=== PATIENT | male | born 1945 | race Caucasian/White ===

== ENCOUNTER → 2016-04-24 | Outpatient (CLI) | payer OTHER ==
[~2016-04-24] MED LIST: HYDR12.55 PO; LISI10TA PO; METF1000 PO; OXYC-57 PO; POTA-327 PO
[2016-04-24 12:38] LABS: BLOOD UREA NITROGEN 25 mg/dl (7-18); BUN/CREATININE RATIO 17.9 (10-20); CALCIUM 9.1 mg/dl (8.5-10.1); CARBON DIOXIDE 26 mmol/L (21-32); CHLORIDE 104 mmol/L (98-107); GLUCOSE 190 mg/dl (70-99); POTASSIUM 4.2 mmol/L (3.5-5.1); SODIUM 138 mmol/L (136-145)
[2016-04-24 12:45] LABS: ESTIMATED AVERAGE GLUCOSE 169 mg/dl; HA1C FLAG Normal (Normal)
== END | disposition home or self-care (01) ==
LOC: C.LABPVFM 09:24
PROVIDERS: ATTEND Family Medicine
DX: M10.9 Gout, unspecified (principal); E11.40 Type 2 diabetes mellitus with diabetic neuropathy, unspecified

== ENCOUNTER → 2016-08-22 | Outpatient (CLI) | payer OTHER ==
[2016-08-22 12:39] LABS: ESTIMATED AVERAGE GLUCOSE 166 mg/dl; HA1C FLAG Normal (Normal)
[2016-08-22 12:58] LABS: CALCIUM 9.4 mg/dl (8.5-10.1)
[2016-08-22 12:59] LABS: BLOOD UREA NITROGEN 18 mg/dl (7-18); BUN/CREATININE RATIO 16.7 (10-20); CARBON DIOXIDE 26 mmol/L (21-32); CHLORIDE 107 mmol/L (98-107); GLUCOSE 168 mg/dl (70-99); POTASSIUM 4.4 mmol/L (3.5-5.1); SODIUM 139 mmol/L (136-145)
== END | disposition home or self-care (01) ==
LOC: C.LABPVFM 08:15
PROVIDERS: ATTEND Family Medicine
DX: E11.9 Type 2 diabetes mellitus without complications (principal)

== ENCOUNTER → 2017-03-26 | Outpatient (CLI) | payer OTHER ==
[~2017-03-26] MED LIST changes: -OXYC-57 PO
[2017-03-26 12:11] LABS: ESTIMATED AVERAGE GLUCOSE 177 mg/dl; HA1C FLAG Normal (Normal)
[2017-03-26 12:29] LABS: BLOOD UREA NITROGEN 29 mg/dl (7-18); BUN/CREATININE RATIO 20.9 (10-20); CALCIUM 8.8 mg/dl (8.5-10.1); CARBON DIOXIDE 27 mmol/L (21-32); CHLORIDE 102 mmol/L (98-107); CREATININE 1.39 mg/dl (0.60-1.40); GLUCOSE 158 mg/dl (70-99); POTASSIUM 4.4 mmol/L (3.5-5.1); SODIUM 135 mmol/L (136-145)
[2017-03-26 12:33] LABS: CHOLESTEROL 118 mg/dl (0-200); CHOLESTEROL/HDL RATIO 3.5; HDL CHOLESTEROL 34 mg/dl; LDL CHOLESTEROL CALCULATED 52 mg/dl; TRIGLYCERIDES 162 mg/dl (0-150); VERY LOW DENSITY LIPOPROT CALC 32 mg/dl
== END | disposition home or self-care (01) ==
LOC: C.LABPVFM 08:40
PROVIDERS: ATTEND Family Medicine
DX: E78.5 Hyperlipidemia, unspecified (principal); E11.40 Type 2 diabetes mellitus with diabetic neuropathy, unspecified

== ENCOUNTER → 2017-05-09 | Outpatient (CLI) | payer OTHER ==
[2017-05-09 12:49] LABS: HEMATOCRIT 42.9 % (42-52); HEMOGLOBIN 14.7 g/dL (14.0-18.0); MEAN CELL VOLUME 89.2 fL (80-100); MEAN CORPUSCULAR HEMOGLOBIN 30.6 pg (25-34); MEAN CORPUSCULAR HGB CONC 34.3 g/dl (32-36); MEAN PLATELET VOLUME 12.1 fL (7.4-10.4); PLATELET COUNT 204 K/uL (130-400); RED CELL DISTRIBUTION WIDTH CV 13.1 % (11.5-14.5); RED CELL DISTRIBUTION WIDTH SD 41.8 fL (36.4-46.3); WHITE BLOOD COUNT 7.39 K/uL (4.8-10.8)
[2017-05-09 13:45] LABS: HEMOGLOBIN A1C 8.1 % (4.5-5.6)
[2017-05-09 13:50] LABS: ALBUMIN 3.7 gm/dl (3.4-5.0); ALT/SGPT 26 U/L (12-78); AST/SGOT 16 U/L (15-37); BLOOD UREA NITROGEN 26 mg/dl (7-18); CALCIUM 9.4 mg/dl (8.5-10.1); CARBON DIOXIDE 24 mmol/L (21-32); CHOLESTEROL 129 mg/dl (0-200); CREATININE 1.27 mg/dl (0.60-1.40); GLUCOSE 201 mg/dl (70-99); SODIUM 135 mmol/L (136-145); TRANSFERRIN 268 mg/dl (200-360)
[2017-05-09 13:55] LABS: ALKALINE PHOSPHATASE 87 U/L (45-117); LDL CHOLESTEROL CALCULATED 66 mg/dl; TOTAL PROTEIN 7.3 gm/dl (6.4-8.2)
== END | disposition home or self-care (01) ==
LOC: C.LABPVFM 09:05
PROVIDERS: ATTEND Family Medicine
DX: G25.81 Restless legs syndrome (principal)

== ENCOUNTER → 2017-11-12 | Outpatient (CLI) | payer OTHER ==
[2017-11-12 13:39] LABS: ALBUMIN 3.8 gm/dl (3.4-5.0); ALKALINE PHOSPHATASE 69 U/L (45-117); ALT/SGPT 37 U/L (12-78); AST/SGOT 30 U/L (15-37); BLOOD UREA NITROGEN 23 mg/dl (7-18); CALCIUM 9.2 mg/dl (8.5-10.1); CARBON DIOXIDE 26 mmol/L (21-32); CHOLESTEROL 146 mg/dl (0-200); CREATININE 1.36 mg/dl (0.60-1.40); GLUCOSE 223 mg/dl (70-99); LDL CHOLESTEROL CALCULATED 63 mg/dl; SODIUM 136 mmol/L (136-145); TOTAL PROTEIN 7.2 gm/dl (6.4-8.2)
[2017-11-12 13:51] LABS: HEMOGLOBIN A1C 7.5 % (4.5-5.6)
== END | disposition home or self-care (01) ==
LOC: C.LABPVFM 09:42
PROVIDERS: ATTEND Family Medicine
DX: E11.9 Type 2 diabetes mellitus without complications (principal); E66.9 Obesity, unspecified

== ENCOUNTER 2018-05-18 10:38 | Inpatient (IN) ==
[2018-05-18] MEDS ORDERED: PIPERACILLIN/TAZOBACTAM 4.5 GM/120 ML BAG IV ONE (10:59)
[2018-05-18] MEDS ORDERED: PIPERACILL/TAZOBAC CONSULT ACTIVE PRN ×2 (10:59→14:46)
[2018-05-18] MEDS ORDERED: DAPTOmycin 375 MG in SYRINGE 0 ML IV ONE (10:59)
[2018-05-18] MEDS ORDERED: ACETAMINOPHEN 500 MG TAB PO STA (10:59)
[2018-05-18] MEDS: HYDROmorphone INJ 1 MG/ML SYRINGE IV PRN (11:08)
--- NOTE | 2018-05-18 11:40 | XRay Report ---
XR chest 1V portable CLINICAL HISTORY: 72 years-old Male presenting with Sepsis. TECHNIQUE: Portable upright AP view of the chest was obtained. COMPARISON: 05/16/2018. FINDINGS: Cardiomediastinal silhouette normal. No focal opacity. No large effusion or pneumothorax. Anterior ce rvical fusion hardware. Degenerative changes of the spine. Upper abdomen normal. IMPRESSION: 1. No acute cardiopulmonary disease. Electronically signed by: Mike Bah M.D. 05/18/2018 11:39 AM
[2018-05-18 11:43] LABS: Basophils # (auto) 0.02 K/uL (0-0.2); Basophils % (auto) 0.2 %; Eosinophils # (auto) 0.03 K/uL (0-0.5); Eosinophils % (auto) 0.2 %; Hematocrit (blood only) 42.3 % (42-52); Hemoglobin 14.9 g/dL (14.0-18.0); Immature Granulocytes # (auto) 0.07 K/uL (0.00-0.02); Immature Granulocytes % (auto) 0.5 %; Lymphocytes # (auto) 0.82 K/uL (1.2-3.4); Lymphocytes % (auto) 6.2 %; Mean Corpuscular Hgb Conc 35.2 g/dL (32-36); Mean Corpuscular Volume 91.4 fL (80-100); Mean Platelet Volume 11.2 fL (7.4-10.4); Monocytes # (auto) 1.26 K/uL (0.11-0.59); Monocytes % (auto) 9.5 %; Neutrophils # (auto) 11.06 K/uL (1.4-6.5); Neutrophils % (auto) 83.4 %; Platelet Count 225 K/uL (130-400); RDW Coefficient of Variation 13.4 % (11.5-14.5); RDW Standard Deviation 44.7 fL (36.4-46.3); Red Blood Count 4.63 M/uL (4.7-6.1); White Blood Count 13.26 K/uL (4.8-10.8)
[2018-05-18 11:51] LABS: INR 1.1 (0.9-1.1); Partial Thromboplastin Ratio 1.1; Partial Thromboplastin Time 28.1 Seconds (21.0-31.0); Prothrombin Time 10.8 Seconds (9.0-12.0)
[2018-05-18 12:01] LABS: Alanine Aminotransferase 49 U/L (12-78); Albumin Level 3.1 gm/dl (3.4-5.0); Aspartate Aminotransferase 27 U/L (15-37); Blood Urea Nitrogen 26 mg/dl (7-18); Calcium 9.2 mg/dl (8.5-10.1); Carbon Dioxide 29 mmol/L (21-32); Chloride 95 mmol/L (98-107); Creatinine Clr Calc Pharmacy 57.9 ml/min; Est GFR (African American) 53.1; Est GFR (Non-African American) 45.9; Glucose 137 mg/dl (70-99); Potassium 3.8 mmol/L (3.5-5.1); Sodium 130 mmol/L (136-145)
[2018-05-18] MEDS ORDERED: SODIUM CHLORIDE 0.9% 1000ML 1,000 ML IV ONE (12:10)
--- NOTE | 2018-05-18 12:16 | Ultrasound Report ---
ULTRASOUND BILATERAL LOWER EXTREMITY VENOUS CLINICAL HISTORY: Lower extremity edema. COMPARISON STUDY: Bilateral lower extremity venous ultrasound dated 05/16/2018. TECHNIQUE: Real-time, grayscale, and color Doppler sonography of the deep veins of the right and left lower extremity was performed from the inguinal crease to the calf. Compression and augmentation wer e utilized. FINDINGS: There is no sonographic evidence of deep venous thrombosis identified in the right or left lower extremity. The common femoral, superficial femoral, and popliteal veins are patent and normally compressible bilaterally. The greater saphenous vein and the profunda femoris vein at the junction w ith the common femoral vein are clear in both legs. The visualized calf veins are patent bilaterally. A small left-sided popliteal cyst measures 3.0 x 1.1 x 3.0 cm. IMPRESSION: 1. There is no sonographic evidence of deep venous thrombosis identified in the right or left lower e xtremity. 2. Small left popliteal cyst. Electronically signed by: Branden Berry M.D. 05/18/2018 12:15 PM
[2018-05-18 12:23] LABS: Albumin Globulin Ratio 0.6 (0.9-2); Alkaline Phosphatase 79 U/L (45-117); Bilirubin,Total 1.8 mg/dl (0.2-1); Creatine Kinase 42 U/L (39-308); Creatine Kinase MB < 1.0 ng/ml (0.5-3.6); Globulin 4.9 gm/dl (2.5-4.0); NT Pro B Type Natriuretic Pept 91 pg/ml (0-900); Troponin I < 0.015 ng/ml (0-0.045)
[2018-05-18 13:16] LABS: Appearance Urine Turbid (Clear); Bacteria Urine Automated Negative (Negative); Bilirubin Urine Negative (Negative); Color Urine Dark Yellow; Glucose Urine UA Negative (Negative); Ketones Urine Negative (Negative); Leukocyte Esterase Urine Trace (Negative); Nitrite Urine Negative (Negative); Protein Urine 1+ (Negative); Specific Gravity Urine 1.022 (1.000-1.030); Urobilinogen Urine Negative (Negative)
[2018-05-18 13:32] LABS: Uric Acid Crystals Urine Present (None Prsent)
--- NOTE | 2018-05-18 14:24 | History & Physical Report ---
Date of Service May 18, 2018 Assessment & Plan (1) Cellulitis: L>R Started on zosyn in the ED, will continue LE US neg for DVT Febrile with elevated WBC (2) UTI (urinary tract infection): UA noted s/p orellana for urinary retention post-op zosyn will cover as well Urine and blood cx pending (3) Acute urinary retention: Orellana placed in ED on 05/12 [place] to be related to post-op status (4) Cervical stenosis of spinal canal: Appears stable Ortho c/s pending (5) ARF (acute renal failure): Cr was 1.3 on d/c Monitor on gentle IVF (6) DM type 2 (diabetes mellitus, type 2): Metformin only Monitor (7) Hyperlipidemia: continue home meds (8) HTN (hypertension): continue home meds (9) Gout: Hx of gout in both great toes, separate occurrences Exam is not c/w gout (10) 1st degree AV block: Seen on prior EKG, asx (11) DVT prophylaxis: SCDs given recent OR Rx if permissible by ortho History of Present Illness Primary Care Provider: Jojo Peng MD 72 y/o M c/o LE pain. Pt had a C5-6 fusion on 05/[address] Ortiz. He was doing well from this standpoint and d/c'd to home on 05/12. He states he had no pain in his LE and was able to walk without issue. The night of d/c, pt stopped being able to urinate. He had been able to urinate prior to d/c home. He was seen in the ED and a orellana was placed at that time. He was d/c'd to home. On 05/15, pt again presented to the ED, this time due to pain in his feet and LE, L>R. It was felt that this was related to post-op status. LE US were neg. Pt was d/c'd home. Pt states that over the weekend his LE pain worsened and he developed LE redness, L>R. He states that it was so painful to the bottom of his feet that he could not even walk today, so they returned to the ED. He does have mild LE swelling, L>R. No hx of cellulitis. No recent cuts or scrapes. Pt does have hx of gout in b/l great toes at separate times, but not recently. He has no pain in his toes, mostly the bottoms of the feet. It moves up to the knee on the L only. Pt states that he finds wearing the neck brace uncomfortable, but other than that has had minimal pain related to his recent surgery. He has not needed much for pain control overall. He has no headaches. Pt denies fever, SOB, chest pain , abd pain, n/v/c/d. He notes a decreased appetite since the surgery, but tolerating what he does eat. Allergies Allergy/AdvReac Type Severity Reaction Status Date / Time No Known Allergies Allergy Unknown ` Verified 05/18/18 11:30 Home Medications Home Medications Medication Instructions Recorded Confirmed Type atorvastatin [Lipitor] 10 mg PO HS 04/17/18 05/18/18 History hydrochlorothiazide 12.5 mg PO QAM 04/17/18 05/18/18 History lisinopril 10 mg PO QAM 04/17/18 05/18/18 History metformin 1,000 mg PO BID 04/17/18 05/18/18 History potassium chloride 10 meq PO QAM 04/17/18 05/18/18 History oxycodone 5 mg PO Q4H PRN #20 tab 05/11/18 05/18/18 Rx acetaminophen [Tylenol] 650 mg PO DIRECTED PRN 05/16/18 05/18/18 History gabapentin 100 mg PO Q8H PRN #20 cap 05/16/18 05/18/18 Rx Past Med/Surg History Medical History Bilateral lower extremity edema (Acute) CKD (chronic kidney disease) (Acute) Acute urinary retention (Acute) Obesity DVT prophylaxis Cervical stenosis of spinal canal Calculus, ureteral Gout of left ankle (Acute) Encounter for pre-operative examination Degenerative disc disease 5TH DIGIT OF RIGHT HAND NUMB S/T NECK ISSUES. Diabetes mellitus, type 2 History of nephrolithiasis Hyperlipidemia Hypertension Kidney stones Osteoarthritis Surgical History Hx of neck surgery History of nasal surgery (Acute) History of cataract extraction with lens replacement B/L History of repair of rotator cuff LEFT Family History Other Family history non-contributory Social History marital status: Current Living Situation: Family and Significant Other current occupational status: retired current occupation: Worked for [employer] Other Information That Helps Us Care for You: No Feels Safe at Home: Yes Safety Concerns: Feels Safe At This Time Smoking Status: Never smoker Second Hand Exposure: No Hx Alcohol Use: Yes Alcohol type: beer Alcohol Intake Frequency: a few times a month Hx Substance Use: No Beliefs That Will Affect Care: None Preferred Language: Mongolian Communication Ability: Effective Review of Systems Pertinent positives and negatives reviewed in HPI--all others negative Physical Exam 2 Vital Signs (Past 24 Hours): Last Vital Signs Temp 37.7 C H 05/18/18 12:36 Pulse 75 05/18/18 14:00 Resp 25 H 05/18/18 14:00 BP 160/104 H 05/18/18 14:00 Pulse Ox 94 05/18/18 14:00 Constitutional: WD/WN, vitals as above Eyes: normal visual chan by confrontation and + anicteric sclerae Neck: normal visual inspection and trachea midline Respiratory: normal respiratory effort, lungs clear to auscultation Cardiovascular: Rate/Rhythm: regular rate and regular rhythm Gastrointestinal (Abdomen): Inspection/Auscultation: abdomen not distended Percussion/Palpation: abdomen soft; abdomen nontender Musculoskeletal: Head/Neck/Chest: normocephalic and head atraumatic mild L> R trace edema LE, peripheral pulses intact, warm and TTP on the L Skin: L LE with light colored redness along lateral aspect of LE from distal to ankle up the lateral LE. R LE with light redness along the lateral region around and distal to the ankle Neurologic: awake; not confused Speech / Cognition: normal speech Psychiatric: A+Ox3, euthymic affect Results & Data Diagnostic Findings LE US neg for DVT b/l ECG Findings: + 1st degree AV block (seen prior) Code Status & VTE Plan Code Status Full code VTE Prophylaxis Plan VTE Prophylaxis will be ordered: Yes _ (1) Cellulitis Laterality: Site of cellulitis: unspecified site Site of cellulitis of extremity: Site of cellulitis of trunk: Qualified Code(s): L03.90 - Cellulitis, unspecified (2) UTI (urinary tract infection) Encounter type: Hematuria presence: with hematuria Indwelling urinary catheter type: Urinary tract infection type: site unspecified Qualified Code( s): N39.0 - Urinary tract infection, site not specified; R31.9 - Hematuria, unspecified
[2018-05-18] MEDS ORDERED: MAGNESIUM HYDROXIDE SUSP 30 ML UDC PO PRN (14:46)
[2018-05-18] MEDS ORDERED: ONDANSETRON INJ 2 MG/ML 2 ML VIAL IV PRN (14:46)
[2018-05-18] MEDS ORDERED: GABAPENTIN 100 MG CAP PO PRN (14:46)
[2018-05-18] MEDS ORDERED: NON-FORMULARY MEDICATION (Acetaminophen [Tylenol] 650 MG) PO PRN (14:46)
--- NOTE | 2018-05-18 15:26 | Emergency Department Note ---
Entered by Margarita Glass acting as a scribe for Francisco Belcher MD History of Present Illness General Chief complaint: Leg Injury/Pain Time Seen by Provider: 05/18/18 10:52 Source: patient History of Present Illness Onset (ago): day(s) (last night) Location: lower extremity (bilateral) Pain Consistency: + other (worsening) Maximum Pain Intensity: 9 Quality: + sharp and + other (swollen, red) Exacerbated By: + movement (walking) Associated symptoms: + denies other symptoms (abdominal pain) The patient is a 72 year old male who presents to the Emergency Room with complaints of worsening bilateral leg pain starting last night. The patient states that he had surgery done on his neck by Dr. Ortiz last week. He states that he was sent home 6 days ago, but came back to the ED that night to have a catheter placed. He reports that 3 days ago he started having bilateral foot pain. He states that he came to the ED and did an ultrasound that was negative. Her reports that he was sent home, but since then, it has become worse. He states that his feet are now both red and swollen. He reports that it is a sharp pain and he cannot even walk because of it. The patient denies abdominal pain. Home Medications Home Medications Medication Instructions Recorded Confirmed Type atorvastatin [Lipitor] 10 mg PO HS 04/17/18 05/18/18 History hydrochlorothiazide 12.5 mg PO QAM 04/17/18 05/18/18 History lisinopril 10 mg PO QAM 04/17/18 05/18/18 History metformin 1,000 mg PO BID 04/17/18 05/18/18 History potassium chloride 10 meq PO QAM 04/17/18 05/18/18 History oxycodone 5 mg PO Q4H PRN #20 tab 05/11/18 05/18/18 Rx acetaminophen [Tylenol] 650 mg PO DIRECTED PRN 05/16/18 05/18/18 History gabapentin 100 mg PO Q8H PRN #20 cap 05/16/18 05/18/18 Rx Allergies Allergy/AdvReac Type Severity Reaction Status Date / Time No Known Allergies Allergy Unknown ` Verified 05/18/18 11:30 Past Med/Surg History Medical History Bilateral lower extremity edema (Acute) CKD (chronic kidney disease) (Acute) Acute urinary retention (Acute) Obesity DVT prophylaxis Cervical stenosis of spinal canal Calculus, ureteral Gout of left ankle (Acute) Encounter for pre-operative examination Degenerative disc disease 5TH DIGIT OF RIGHT HAND NUMB S/T NECK ISSUES. Diabetes mellitus, type 2 History of nephrolithiasis Hyperlipidemia Hypertension Kidney stones Osteoarthritis Surgical History Hx of neck surgery History of nasal surgery (Acute) History of cataract extraction with lens replacement B/L History of repair of rotator cuff LEFT Social History marital status: Current Living Situation: Family and Significant Other current occupational status: retired current occupation: Worked for [employer] Other Information That Helps Us Care for You: No Feels Safe at Home: Yes Safety Concerns: Feels Safe At This Time Smoking Status: Never smoker Second Hand Exposure: No Hx Alcohol Use: Yes Alcohol type: beer Alcohol Intake Frequency: a few times a month Hx Substance Use: No Beliefs That Will Affect Care: None Preferred Language: Upper Sorbian Communication Ability: Effective Review of Systems See HPI for pertinent positives & negatives. and A total of 10 systems reviewed and were otherwise negative Physical Exam Vital Signs Vital Signs - 24 hr 05/18/18 10:43 05/18/18 10:44 05/18/18 11:14 Temperature 38.6 C H Temperature Source Oral Sepsis Recent Fever Within 48 Hours Yes Sepsis New/Unexplained Change in Mental Status No Sepsis Action Taken by Nursing No Action Required Pulse Rate 91 H 90 89 Pulse Rate [Finger] Pulse Rhythm Regular Regular Pulse Rhythm [Finger] Pulse Strength Normal Pulse Strength [Finger] Respiratory Rate 16 16 18 Respiratory Effort / Characteristics Non-Labored Respiratory Depth Normal Respiratory Pattern Regular Blood Pressure 137/77 137/77 Blood Pressure [Right Arm] Blood Pressure Mean 97 97 Blood Pressure Mean [Right Arm] Blood Pressure Position Sitting Blood Pressure Position [Right Arm] Pulse Oximetry 91 93 93 Oxygen Delivery Method Room Air Room Air Oxygen Flow Rate 05/18/18 11:29 05/18/18 11:30 05/18/18 11:31 Temperature Temperature Source Sepsis Recent Fever Within 48 Hours Sepsis New/Unexplained Change in Mental Status Sepsis Action Taken by Nursing Pulse Rate 87 87 Pulse Rate [Finger] Pulse Rhythm Pulse Rhythm [Finger] Pulse Strength Pulse Strength [Finger] Respiratory Rate 26 H 24 Respiratory Effort / Characteristics Respiratory Depth Respiratory Pattern Blood Pressure 140/77 140/77 Blood Pressure [Right Arm] Blood Pressure Mean 98 98 Blood Pressure Mean [Right Arm] Blood Pressure Position Blood Pressure Position [Right Arm] Pulse Oximetry 88 L 93 94 Oxygen Delivery Method Nasal Cannula Oxygen Flow Rate 2 05/18/18 11:41 05/18/18 11:46 05/18/18 12:35 Temperature Temperature Source Sepsis Recent Fever Within 48 Hours Sepsis New/Unexplained Change in Mental Status Sepsis Action Taken by Nursing Pulse Rate 86 89 Pulse Rate [Finger] 86 Pulse Rhythm Pulse Rhythm [Finger] Pulse Strength Pulse Strength [Finger] Respiratory Rate 22 23 15 Respiratory Effort / Characteristics Respiratory Depth Respiratory Pattern Blood Pressure 133/76 112/83 Blood Pressure [Right Arm] 140/77 Blood Pressure Mean 95 92 Blood Pressure Mean [Right Arm] 98 Blood Pressure Position Blood Pressure Position [Right Arm] Pulse Oximetry 94 94 95 Oxygen Delivery Method Nasal Cannula Oxygen Flow Rate 2 05/18/18 12:36 05/18/18 12:46 05/18/18 13:01 Temperature 37.7 C H Temperature Source Oral Sepsis Recent Fever Within 48 Hours Sepsis New/Unexplained Change in Mental Status Sepsis Action Taken by Nursing Pulse Rate 79 77 Pulse Rate [Finger] 81 Pulse Rhythm Pulse Rhythm [Finger] Regular Pulse Strength Pulse Strength [Finger] Normal Respiratory Rate 16 24 20 Respiratory Effort / Characteristics Non-Labored Respiratory Depth Normal Respiratory Pattern Regular Blood Pressure 117/86 151/89 H Blood Pressure [Right Arm] 112/83 Blood Pressure Mean 96 109 Blood Pressure Mean [Right Arm] 92 Blood Pressure Position Blood Pressure Position [Right Arm] Lying Pulse Oximetry 95 93 95 Oxygen Delivery Method Nasal Cannula Oxygen Flow Rate 2 05/18/18 13:05 05/18/18 13:16 05/18/18 13:30 Temperature Temperature Source Sepsis Recent Fever Within 48 Hours Sepsis New/Unexplained Change in Mental Status Sepsis Action Taken by Nursing Pulse Rate 78 77 74 Pulse Rate [Finger] Pulse Rhythm Pulse Rhythm [Finger] Pulse Strength Pulse Strength [Finger] Respiratory Rate 18 22 18 Respiratory Effort / Characteristics Respiratory Depth Respiratory Pattern Blood Pressure 160/100 H 160/100 H Blood Pressure [Right Arm] Blood Pressure Mean 120 120 Blood Pressure Mean [Right Arm] Blood Pressure Position Blood Pressure Position [Right Arm] Pulse Oximetry 96 96 95 Oxygen Delivery Method Oxygen Flow Rate 05/18/18 13:35 05/18/18 13:45 05/18/18 14:00 Temperature Temperature Source Sepsis Recent Fever Within 48 Hours Sepsis New/Unexplained Change in Mental Status Sepsis Action Taken by Nursing Pulse Rate 74 75 75 Pulse Rate [Finger] Pulse Rhythm Pulse Rhythm [Finger] Pulse Strength Pulse Strength [Finger] Respiratory Rate 24 30 H 25 H Respiratory Effort / Characteristics Respiratory Depth Respiratory Pattern Blood Pressure 158/99 H 160/104 H Blood Pressure [Right Arm] Blood Pressure Mean 118 122 Blood Pressure Mean [Right Arm] Blood Pressure Position Blood Pressure Position [Right Arm] Pulse Oximetry 95 94 94 Oxygen Delivery Method Oxygen Flow Rate 05/18/18 14:01 05/18/18 14:19 05/18/18 14:43 Temperature 37.0 C Temperature Source Oral Sepsis Recent Fever Within 48 Hours Sepsis New/Unexplained Change in Mental Status Sepsis Action Taken by Nursing Pulse Rate 77 Pulse Rate [Finger] 75 Pulse Rhythm Pulse Rhythm [Finger] Pulse Strength Pulse Strength [Finger] Respiratory Rate 16 18 Respiratory Effort / Characteristics Respiratory Depth Normal Respiratory Pattern Regular Blood Pressure 156/100 H Blood Pressure [Right Arm] 126/70 Blood Pressure Mean Blood Pressure Mean [Right Arm] 88 Blood Pressure Position Blood Pressure Position [Right Arm] Lying Pulse Oximetry 95 94 Oxygen Delivery Method Nasal Cannula Nasal Cannula Oxygen Flow Rate 2 2 2 GENERAL: Awake, alert, well-appearing, in no distress HENT: Normocephalic, atraumatic. Oropharynx unremarkable. EYES: Normal conjunctiva. Sclera non-icteric. NECK: Supple. No nuchal rigidity. FROM. No masses. Cervical collar in place. RESPIRATORY: Clear to auscultation. No wheezes. No rales. Normal respiratory effort. CARDIAC: Normal rate. Normal rhythm. No murmurs. No rubs. Extremities warm and well perfused. Pulses equal. No JVD. GI: Soft, non-distended. No tenderness to palpation. No rebound or guarding. No masses. : Portillo catheter in place. RECTAL: Deferred. MUSCULOSKELETAL: Atraumatic. Chest examination reveals no tenderness. The back is symmetrical on inspection without obvious abnormality. There is no CVA tenderness to palpation. No joint edema. LOWER EXTREMITIES: Calves are equal size bilaterally and non-tender. Developing cellulitis to the dorsum of the left foot and left leg. 5/5 strength to the bilateral lower extremities. NEURO: Normal sensorium. No sensory or motor deficits noted. Course 1057: Past medical records reviewed. The patient was evaluated in room B12B, and a complete history and physical examination were performed. 1112: I discussed the patient's case with Dr. Maykel Turner. He agrees with the plan and would like medicine to bring him in. 1254: I reviewed the patient's case with Dr. Naya ZAMUDIO Hospitalist. She will evaluate the patient for further management. 1256: I reevaluated the patient and updated him and his on his test results. I discussed the treatment plan with them. They verbally agree and understand. Consultations Consultation #1: I discussed the patient's case with Dr. Maykel Turner. He agrees with the plan and would like medicine to bring him in. Time: 11:12 Consultation #2: I reviewed the patient's case with Dr. Naya ZAMUDIO Hospitalist. She will evaluate the patient for further management. Time: 12:54 Administered Medications Hydromorphone HCl (Dilaudid) 1 mg IV Q15M PRN PRN Reason: Pain Stop: 06/01/18 10:58 Last Admin: 05/18/18 11:08 Dose: 1 mg Discontinued Medications Acetaminophen (Tylenol) 1,000 mg PO NOW STA Stop: 05/18/18 11:00 Last Admin: 05/18/18 11:08 Dose: 1,000 mg Daptomycin 375 mg/ Syringe 7.5 mls @ 3.75 mls/min IV NOW ONE Stop: 05/18/18 11:00 Last Admin: 05/18/18 12:35 Dose: 3.75 mls/min Piperacillin Sod/Tazobactam Sod (Zosyn) 4.5 gm in 120 mls @ 240 mls/hr IV NOW ONE Stop: 05/18/18 11:28 Last Infusion: 05/18/18 12:10 Dose: 0 mls/hr Admin: 05/18/18 11:40 Dose: 240 mls/hr Sodium Chloride (Nss 1000ml) 1,000 mls @ 999 mls/hr IV .Q1H1M ONE Stop: 05/18/18 13:10 Last Infusion: 05/18/18 13:37 Dose: 0 mls/hr Admin: 05/18/18 12:36 Dose: 999 mls/hr Medical Decision Making Differential Diagnosis Differential diagnosis: Etiologies such as viral syndrome, otitis, pharyngitis, pneumonia, influenza, meningitis, urinary tract infection, septic arthritis, soft tissue infectious process, intra-abdominal process, sepsis, bacteremia, as well as others were entertained. Medical Records Attestation: I reviewed the patient's medical records. Home Medications Current Medication List: was personally reviewed by me Laboratory Data Attestation: I reviewed the patient's lab results. Result diagrams: 05/18/18 11:29 05/18/18 11:29 Lab Results 05/18/18 05/18/18 05/18/18 Range/Units 11:29 11:29 11:29 WBC 13.26 H (4.8-10.8) K/uL RBC 4.63 L (4.7-6.1) M/uL Hgb 14.9 (14.0-18.0) g/dL Hct 42.3 (42-52) % MCV 91.4 (80-100) fL MCH 32.2 (25-34) pg MCHC 35.2 (32-36) g/dL RDW Std Deviation 44.7 (36.4-46.3) fL RDW Coeff of Karlie 13.4 (11.5-14.5) % Plt Count 225 (130-400) K/uL MPV 11.2 H (7.4-10.4) fL Immature Gran % (Auto) 0.5 % Neut % (Auto) 83.4 % Lymph % (Auto) 6.2 % [place] % (Auto) 9.5 % Eos % (Auto) 0.2 % Baso % (Auto) 0.2 % Immature Gran # (Auto) 0.07 H (0.00-0.02) K/uL Neut # (Auto) 11.06 H (1.4-6.5) K/uL Lymph # (Auto) 0.82 L (1.2-3.4) K/uL [place] # (Auto) 1.26 H (0.11-0.59) K/uL Eos # (Auto) 0.03 (0-0.5) K/uL Baso # (Auto) 0.02 (0-0.2) K/uL ESR 46 H (0-14) mm/hr PT (9.0-12.0) Seconds INR (0.9-1.1) APTT (21.0-31.0) Seconds PTT Ratio Sodium (136-145) mmol/L Potassium (3.5-5.1) mmol/L Chloride (98-107) mmol/L Carbon Dioxide (21-32) mmol/L Anion Gap (3-11) BUN (7-18) mg/dl Creatinine (0.6-1.4) mg/dl Est Cr Clr Drug Dosing ml/min Est GFR ( Amer) Est GFR (Non-Af Amer) BUN/Creatinine Ratio (10-20) Glucose (70-99) mg/dl Lactate (0.4-2.0) mmol/L Calcium (8.5-10.1) mg/dl Total Bilirubin (0.2-1) mg/dl AST (15-37) U/L ALT (12-78) U/L Alkaline Phosphatase (45-117) U/L Total Creatine Kinase (39-308) U/L CK-MB (CK-2) (0.5-3.6) ng/ml CK/CKMB % Calc Troponin I (0-0.045) ng/ml C-Reactive Protein (0-0.29) mg/dl NT-Pro-B Natriuret Pep (0-900) pg/ml Total Protein (6.4-8.2) gm/dl Albumin (3.4-5.0) gm/dl Globulin (2.5-4.0) gm/dl Albumin/Globulin Ratio (0.9-2) Procalcitonin 0.27 (0-0.5) ng/ml Urine Color Urine Appearance (Clear) Urine pH (4.5-7.5) Ur Specific [place] (1.000-1.030) Urine Protein (Negative) Urine Glucose (UA) (Negative) Urine Ketones (Negative) Urine Blood (Negative) Urine Nitrite (Negative) Urine Bilirubin (Negative) Urine Urobilinogen (Negative) Ur Leukocyte Esterase (Negative) Urine WBC (Auto) (0-5) /hpf Urine RBC (Auto) (0-4) /hpf U Hyaline Cast (Auto) (0-5) /lpf U Epithel Cells (Auto) (0-5) /lpf Urine Bacteria (Auto) (Negative) Urine Crystals Uric Acid Crystals (None Prsent) 02/04/19 02/04/19 02/04/19 Range/Units 11:29 11:29 11:29 WBC (4.8-10.8) K/uL RBC (4.7-6.1) M/uL Hgb (14.0-18.0) g/dL Hct (42-52) % MCV (80-100) fL MCH (25-34) pg MCHC (32-36) g/dL RDW Std Deviation (36.4-46.3) fL RDW Coeff of Karlie (11.5-14.5) % Plt Count (130-400) K/uL MPV (7.4-10.4) fL Immature Gran % (Auto) % Neut % (Auto) % Lymph % (Auto) % [place] % (Auto) % Eos % (Auto) % Baso % (Auto) % Immature Gran # (Auto) (0.00-0.02) K/uL Neut # (Auto) (1.4-6.5) K/uL Lymph # (Auto) (1.2-3.4) K/uL [place] # (Auto) (0.11-0.59) K/uL Eos # (Auto) (0-0.5) K/uL Baso # (Auto) (0-0.2) K/uL ESR (0-14) mm/hr PT 10.8 (9.0-12.0) Seconds INR 1.1 (0.9-1.1) APTT 28.1 (21.0-31.0) Seconds PTT Ratio 1.1 Sodium 130 L (136-145) mmol/L Potassium 3.8 (3.5-5.1) mmol/L Chloride 95 L (98-107) mmol/L Carbon Dioxide 29 (21-32) mmol/L Anion Gap 6.0 (3-11) BUN 26 H (7-18) mg/dl Creatinine 1.50 H (0.6-1.4) mg/dl Est Cr Clr Drug Dosing 57.9 ml/min Est GFR ( Amer) 53.1 Est GFR (Non-Af Amer) 45.9 BUN/Creatinine Ratio 17.0 (10-20) Glucose 137 H (70-99) mg/dl Lactate 1.3 (0.4-2.0) mmol/L Calcium 9.2 (8.5-10.1) mg/dl Total Bilirubin 1.8 H D (0.2-1) mg/dl AST 27 (15-37) U/L ALT 49 (12-78) U/L Alkaline Phosphatase 79 (45-117) U/L Total Creatine Kinase 42 (39-308) U/L CK-MB (CK-2) < 1.0 (0.5-3.6) ng/ml CK/CKMB % Calc TNP Troponin I < 0.015 (0-0.045) ng/ml C-Reactive Protein 16.50 H (0-0.29) mg/dl NT-Pro-B Natriuret Pep 91 (0-900) pg/ml Total Protein 8.0 (6.4-8.2) gm/dl Albumin 3.1 L (3.4-5.0) gm/dl Globulin 4.9 H (2.5-4.0) gm/dl Albumin/Globulin Ratio 0.6 L (0.9-2) Procalcitonin (0-0.5) ng/ml Urine Color Urine Appearance (Clear) Urine pH (4.5-7.5) Ur Specific [place] (1.000-1.030) Urine Protein (Negative) Urine Glucose (UA) (Negative) Urine Ketones (Negative) Urine Blood (Negative) Urine Nitrite (Negative) Urine Bilirubin (Negative) Urine Urobilinogen (Negative) Ur Leukocyte Esterase (Negative) Urine WBC (Auto) (0-5) /hpf Urine RBC (Auto) (0-4) /hpf U Hyaline Cast (Auto) (0-5) /lpf U Epithel Cells (Auto) (0-5) /lpf Urine Bacteria (Auto) (Negative) Urine Crystals Uric Acid Crystals (None Prsent) 05/18/18 Range/Units 13:00 WBC (4.8-10.8) K/uL RBC (4.7-6.1) M/uL Hgb (14.0-18.0) g/dL Hct (42-52) % MCV (80-100) fL MCH (25-34) pg MCHC (32-36) g/dL RDW Std Deviation (36.4-46.3) fL RDW Coeff of Karlie (11.5-14.5) % Plt Count (130-400) K/uL MPV (7.4-10.4) fL Immature Gran % (Auto) % Neut % (Auto) % Lymph % (Auto) % [place] % (Auto) % Eos % (Auto) % Baso % (Auto) % Immature Gran # (Auto) (0.00-0.02) K/uL Neut # (Auto) (1.4-6.5) K/uL Lymph # (Auto) (1.2-3.4) K/uL [place] # (Auto) (0.11-0.59) K/uL Eos # (Auto) (0-0.5) K/uL Baso # (Auto) (0-0.2) K/uL ESR (0-14) mm/hr PT (9.0-12.0) Seconds INR (0.9-1.1) APTT (21.0-31.0) Seconds PTT Ratio Sodium (136-145) mmol/L Potassium (3.5-5.1) mmol/L Chloride (98-107) mmol/L Carbon Dioxide (21-32) mmol/L Anion Gap (3-11) BUN (7-18) mg/dl Creatinine (0.6-1.4) mg/dl Est Cr Clr Drug Dosing ml/min Est GFR ( Amer) Est GFR (Non-Af Amer) BUN/Creatinine Ratio (10-20) Glucose (70-99) mg/dl Lactate (0.4-2.0) mmol/L Calcium (8.5-10.1) mg/dl Total Bilirubin (0.2-1) mg/dl AST (15-37) U/L ALT (12-78) U/L Alkaline Phosphatase (45-117) U/L Total Creatine Kinase (39-308) U/L CK-MB (CK-2) (0.5-3.6) ng/ml CK/CKMB % Calc Troponin I (0-0.045) ng/ml C-Reactive Protein (0-0.29) mg/dl NT-Pro-B Natriuret Pep (0-900) pg/ml Total Protein (6.4-8.2) gm/dl Albumin (3.4-5.0) gm/dl Globulin (2.5-4.0) gm/dl Albumin/Globulin Ratio (0.9-2) Procalcitonin (0-0.5) ng/ml Urine Color Dark Yellow Urine Appearance Turbid H (Clear) Urine pH 5.0 (4.5-7.5) Ur Specific [place] 1.022 (1.000-1.030) Urine Protein 1+ H (Negative) Urine Glucose (UA) Negative (Negative) Urine Ketones Negative (Negative) Urine Blood 2+ H (Negative) Urine Nitrite Negative (Negative) Urine Bilirubin Negative (Negative) Urine Urobilinogen Negative (Negative) Ur Leukocyte Esterase Trace H (Negative) Urine WBC (Auto) 1-5 (0-5) /hpf Urine RBC (Auto) 10-30 H (0-4) /hpf U Hyaline Cast (Auto) 1-5 (0-5) /lpf U Epithel Cells (Auto) 5-10 H (0-5) /lpf Urine Bacteria (Auto) Negative (Negative) Urine Crystals Not Reportable Uric Acid Crystals Present H (None Prsent) Imaging Data Radiologist's Impression: Radiology results as stated below per my review and the radiologist's interpretation: XR chest 1V portable CLINICAL HISTORY: 72 years-old Male presenting with Sepsis. TECHNIQUE: Portable upright AP view of the chest was obtained. COMPARISON: 05/16/2018. FINDINGS: Cardiomediastinal silhouette normal. No focal opacity. No large effusion or pneumothorax. Anterior cervical fusion hardware. Degenerative changes of the spine. Upper abdomen normal. IMPRESSION: 1. No acute cardiopulmonary disease. Electronically signed by: Mike Bah M.D. 05/18/2018 11:39 AM ULTRASOUND BILATERAL LOWER EXTREMITY VENOUS CLINICAL HISTORY: Lower extremity edema. COMPARISON STUDY: Bilateral lower extremity venous ultrasound dated 05/16/2018. TECHNIQUE: Real-time, grayscale, and color Doppler sonography of the deep veins of the right and left lower extremity was performed from the inguinal crease to the calf. Compression and augmentation were utilized. FINDINGS: There is no sonographic evidence of deep venous thrombosis identified in the right or left lower extremity. The common femoral, superficial femoral, and popliteal veins are patent and normally compressible bilaterally. The greater saphenous vein and the profunda femoris vein at the junction with the common femoral vein are clear in both legs. The visualized calf veins are patent bilaterally. A small left-sided popliteal cyst measures 3.0 x 1.1 x 3.0 cm. IMPRESSION: 1. There is no sonographic evidence of deep venous thrombosis identified in the right or left lower extremity. 2. Small left popliteal cyst. Electronically signed by: Branden Berry M.D. 05/18/2018 12:15 PM ECG Data Attestation: I personally reviewed and interpreted this ECG as follows: Indication: weakness Rate (beats per minute): 89 Rhythm: sinus rhythm Findings: + 1st degree AV block; no ST depression and no ST elevation Blood Pressure Blood Pressure Findings: Elevated blood pressure Blood Pressure Disposition: further management by hospitalist [facility] Narrative This is a 72-year-old male who presents emergency department complaining of fever. The patient recently had neck surgery performed. He does have an elevation in his white blood cell count and does appear to have cellulitis developing on his left lower extremity as well as a UTI. Patient was given Tylenol here for the fever and started on fluids. Blood cultures were obtained the patient was started on Zosyn as well as daptomycin. I did discuss the case with the hospitalist service who agreed to admit the patient. Patient and family were in agreement with the treatment plan. Impression & Plan Fever, Cellulitis, UTI (urinary tract infection) Discharge Plan Visit Data *Final* Discharge Date/Time: 05/18/18 14:19 Chief Complaint: Leg Injury/Pain ED Provider: Francisco Belcher Discharge Problem: Fever, Cellulitis, UTI (urinary tract infection) Patient Disposition: Admitted As Inpatient Discharge Instructions Interventions: ED Discharge Assessment Last Done: 05/18/18 14:19 The scribe's documentation has been prepared under my direction and personally reviewed by me in its entirety. I confirm that the note above accurately reflects all work, treatment, procedures, and medical decision making performed by me.
[2018-05-18] MEDS: NSS + 20MEQ KCL 20 MEQ/1,000 ML BAG IV SCH (16:07)
[2018-05-18] MEDS: PIPERACILLIN/TAZOBACTAM 4.5 GM in DEXTROSE 5% 100 ML IV SCH (16:07)
[2018-05-18] MEDS: OXYCODONE HCL IR 5 MG TAB (IMMEDIATE RELEASE) PO PRN (16:16)
[2018-05-18] MEDS: METFORMIN HCL 500 MG TAB PO SCH (17:49)
[2018-05-18] MEDS ORDERED: DEXTROSE 50% 50 ML SYRINGE IV PRN (20:55)
[2018-05-18] MEDS ORDERED: GLUCOSE 40% GEL 15 GM TUBE PO PRN (20:55)
[2018-05-18] MEDS ORDERED: GLUCOSE 10 TABS/TUBE PO PRN (20:55)
[2018-05-18] MEDS ORDERED: GLUCAGON FOR INJ 1 MG VIAL SQ PRN (20:55)
[2018-05-18] MEDS ORDERED: CARBOHYDRATES FOR HYPOGLYCEMIA PO PRN (20:55)
[2018-05-18] MEDS: ATORVASTATIN 10 MG TAB PO SCH (21:05)
[2018-05-19] MEDS: PIPERACILLIN/TAZOBACTAM 4.5 GM in DEXTROSE 5% 100 ML IV SCH ×4 (00:06→23:34)
[2018-05-19] MEDS: HYDROmorphone INJ 1 MG/ML SYRINGE IV PRN (02:43)
[2018-05-19] MEDS: OXYCODONE HCL IR 5 MG TAB (IMMEDIATE RELEASE) PO PRN ×3 (05:41→14:43)
[2018-05-19] MEDS ORDERED: HYDROmorphone INJ 1 MG/ML SYRINGE IV PRN (06:21)
[2018-05-19 06:31] LABS: Basophils # (auto) 0.01 K/uL (0-0.2); Basophils % (auto) 0.1 %; Eosinophils # (auto) 0.03 K/uL (0-0.5); Eosinophils % (auto) 0.3 %; Hematocrit (blood only) 39.6 % (42-52); Hemoglobin 13.3 g/dL (14.0-18.0); Immature Granulocytes # (auto) 0.04 K/uL (0.00-0.02); Immature Granulocytes % (auto) 0.4 %; Lymphocytes # (auto) 0.82 K/uL (1.2-3.4); Lymphocytes % (auto) 7.5 %; Mean Corpuscular Hgb Conc 33.6 g/dL (32-36); Mean Corpuscular Volume 92.7 fL (80-100); Mean Platelet Volume 11.1 fL (7.4-10.4); Monocytes # (auto) 1.25 K/uL (0.11-0.59); Monocytes % (auto) 11.4 %; Neutrophils # (auto) 8.79 K/uL (1.4-6.5); Neutrophils % (auto) 80.3 %; Platelet Count 221 K/uL (130-400); RDW Coefficient of Variation 13.4 % (11.5-14.5); RDW Standard Deviation 45.6 fL (36.4-46.3); Red Blood Count 4.27 M/uL (4.7-6.1); White Blood Count 10.94 K/uL (4.8-10.8)
[2018-05-19 07:11] LABS: BUN Creatinine Ratio 17.5 (10-20); Calcium 8.8 mg/dl (8.5-10.1); Creatinine Clr Calc Pharmacy 47.4 ml/min; Est GFR (African American) 41.8; Est GFR (Non-African American) 36.1; Magnesium 1.8 mg/dl (1.8-2.4); Phosphorus 3.6 mg/dl (2.5-4.9); Potassium 3.7 mmol/L (3.5-5.1)
[2018-05-19] MEDS ORDERED: hydroCHLOROthiazide 25 MG TAB PO SCH (09:00)
[2018-05-19] MEDS ORDERED: LISINOPRIL 10 MG TAB PO SCH (09:00)
[2018-05-19] MEDS: NSS + 20MEQ KCL 20 MEQ/1,000 ML BAG IV SCH ×2 (09:19→21:42)
[2018-05-19] MEDS: POTASSIUM CHLORIDE 10 MEQ TABCR PO SCH (09:20)
[2018-05-19] MEDS: METFORMIN HCL 500 MG TAB PO SCH (09:28)
--- NOTE | 2018-05-19 10:00 | Hospitalist Progress Note ---
Date of Service May 19, 2018 Assessment & Plan (1) Bilateral foot pain: Cellulitis is less likely as the area of redness on either foot are symmetrical, it would be strange to have bilateral mirroring infections. I'm also not sure that it's a vascular insufficiency as patient has good pulses with warm feet/extremities. LE US did not reveal dvt - patient does have small popliteal cyst - contributing to left knee pain? Febrile with elevated WBC on admission - resolved - will continue zosyn until cultures resulted Gout flare? - see below ortho spine consulted (2) Acute kidney injury: Baseline creatinine is 1.3 - now 1.83 Will hold metformin, lisinopril and hctz Continue gentle fluids Prp am (3) UTI (urinary tract infection): UA noted s/p orellana for urinary retention post-op Continue zosyn Urine and blood cx pending (4) Acute urinary retention: Orellana placed in ED on 05/12 [place] to be related to post-op status (5) Cervical stenosis of spinal canal: Appears stable Ortho c/s pending (6) DM type 2 (diabetes mellitus, type 2): Metformin at home - hold for now for hypoglycemia, renal function BSGs ac & hs (7) Hyperlipidemia: continue atorvastatin (8) HTN (hypertension): continue home meds (9) Gout: Hx of gout in both great toes, separate occurrences Patient does have uric acid crystals in urine - will order serum uric acid though could take up to two weeks to be evident in the blood after an attack and does not rule out pseudogout Will hold off on NSAIDs or colchicine due to kidney function Will give dose of IV solumedrol now and then transition to prednisone po (10) 1st degree AV block: Seen on prior EKG, asx (11) Hypoglycemia: unclear etiology at present - eating less or related to infection? Hold metformin Cotinue bsgs ac & hs (12) DVT prophylaxis: SCDs given recent OR Rx if permissible by ortho Supervising Physician Co-Signing Physician Notes SAMPLE SUPERVISOR Physician Supervision Note: I discussed with Lorrie Lino NP and agree with findings and plan as documented in the note. Any exceptions or clarifications are listed here: None Documented By: Ravi Da Silva Subjective Mr. Kiran is feeling better than yesterday but still has bilateral pain on his lateral feet and on the left leg the pain travels up his lateral and posterior leg to the knee. He otherwise has no complaints. No loss of bowel function. Orellana in place Review of Systems All systems reviewed & are unremarkable except as noted in HPI & below Physical Exam 2 Vital Signs (Past 24 Hours): Last Vital Signs Temp 36.4 C L 05/19/18 07:26 Pulse 77 05/19/18 07:26 Resp 22 05/19/18 07:26 BP 144/71 H 05/19/18 07:26 Pulse Ox 94 05/19/18 07:26 Physical Exam: General: no distress Eyes: normal inspection, PERLL Respiratory: chest non tender, clear to auscultation, normal breath sounds, no respiratory distress, no accessory muscle use Cardiac: regular rate and rhythm, no rub or gallop, no murmur, no edema, no jvd GI/: active bowel sounds, no abd pain or tenderness, soft, non distended Extremities: normal range of motion, normal strength, tender lateral dorsal feet that is acutely painful when palpated over distal metatarsal joint Neuro/Psych: alert and oriented x 3, normal mood and affect Skin: normal color, dry, bilateral mild erythema over lateral dorsal feet. No edema Results & Data Laboratory Results Abnormal lab results 05/18/18 05/18/18 05/18/18 Range/Units 11:29 11:29 11:29 WBC 13.26 H (4.8-10.8) K/uL RBC 4.63 L (4.7-6.1) M/uL Hgb (14.0-18.0) g/dL Hct (42-52) % MPV 11.2 H (7.4-10.4) fL Immature Gran # (Auto) 0.07 H (0.00-0.02) K/uL Neut # (Auto) 11.06 H (1.4-6.5) K/uL Lymph # (Auto) 0.82 L (1.2-3.4) K/uL [place] # (Auto) 1.26 H (0.11-0.59) K/uL ESR 46 H (0-14) mm/hr Sodium 130 L (136-145) mmol/L Chloride 95 L (98-107) mmol/L BUN 26 H (7-18) mg/dl Creatinine 1.50 H (0.6-1.4) mg/dl Glucose 137 H (70-99) mg/dl POC Glucose (70-99) Total Bilirubin 1.8 H D (0.2-1) mg/dl C-Reactive Protein 16.50 H (0-0.29) mg/dl Albumin 3.1 L (3.4-5.0) gm/dl Globulin 4.9 H (2.5-4.0) gm/dl Albumin/Globulin Ratio 0.6 L (0.9-2) Urine Appearance (Clear) Urine Protein (Negative) Urine Blood (Negative) Ur Leukocyte Esterase (Negative) Urine RBC (Auto) (0-4) /hpf U Epithel Cells (Auto) (0-5) /lpf Uric Acid Crystals (None Prsent) 05/18/18 05/18/18 05/18/18 Range/Units 13:00 14:59 20:33 WBC (4.8-10.8) K/uL RBC (4.7-6.1) M/uL Hgb (14.0-18.0) g/dL Hct (42-52) % MPV (7.4-10.4) fL Immature Gran # (Auto) (0.00-0.02) K/uL Neut # (Auto) (1.4-6.5) K/uL Lymph # (Auto) (1.2-3.4) K/uL [place] # (Auto) (0.11-0.59) K/uL ESR (0-14) mm/hr Sodium (136-145) mmol/L Chloride (98-107) mmol/L BUN (7-18) mg/dl Creatinine (0.6-1.4) mg/dl Glucose (70-99) mg/dl POC Glucose 68 L* 69 L* (70-99) Total Bilirubin (0.2-1) mg/dl C-Reactive Protein (0-0.29) mg/dl Albumin (3.4-5.0) gm/dl Globulin (2.5-4.0) gm/dl Albumin/Globulin Ratio (0.9-2) Urine Appearance Turbid H (Clear) Urine Protein 1+ H (Negative) Urine Blood 2+ H (Negative) Ur Leukocyte Esterase Trace H (Negative) Urine RBC (Auto) 10-30 H (0-4) /hpf U Epithel Cells (Auto) 5-10 H (0-5) /lpf Uric Acid Crystals Present H (None Prsent) 05/18/18 05/19/18 05/19/18 Range/Units 20:34 05:56 05:56 WBC 10.94 H (4.8-10.8) K/uL RBC 4.27 L (4.7-6.1) M/uL Hgb 13.3 L (14.0-18.0) g/dL Hct 39.6 L (42-52) % MPV 11.1 H (7.4-10.4) fL Immature Gran # (Auto) 0.04 H (0.00-0.02) K/uL Neut # (Auto) 8.79 H (1.4-6.5) K/uL Lymph # (Auto) 0.82 L (1.2-3.4) K/uL [place] # (Auto) 1.25 H (0.11-0.59) K/uL ESR (0-14) mm/hr Sodium 133 L (136-145) mmol/L Chloride 97 L (98-107) mmol/L BUN 32 H (7-18) mg/dl Creatinine 1.83 H D (0.6-1.4) mg/dl Glucose 63 L (70-99) mg/dl POC Glucose 63 L* (70-99) Total Bilirubin (0.2-1) mg/dl C-Reactive Protein (0-0.29) mg/dl Albumin (3.4-5.0) gm/dl Globulin (2.5-4.0) gm/dl Albumin/Globulin Ratio (0.9-2) Urine Appearance (Clear) Urine Protein (Negative) Urine Blood (Negative) Ur Leukocyte Esterase (Negative) Urine RBC (Auto) (0-4) /hpf U Epithel Cells (Auto) (0-5) /lpf Uric Acid Crystals (None Prsent) _ (1) UTI (urinary tract infection) Encounter type: Hematuria presence: with hematuria Indwelling urinary catheter type: Urinary tract infection type: site unspecified Qualified Code( s): N39.0 - Urinary tract infection, site not specified; R31.9 - Hematuria, unspecified
--- NOTE | 2018-05-19 10:00 | Orthopedic Consultation ---
Date of Consultation May 19, 2018 Assessment & Plan (1) Bilateral foot pain: History of Present Illness Reason for Consultation: Postop neck surgery Attending Physician: Ravi Da Silva MD History of Present Illness This is a very pleasant 72-year-old male who is status post neck decompression fusion over a week ago. He presents with significant left leg pain swelling and inability to ambulate. Today he states he is swallowing well. Has no hoarseness. His arm symptoms markedly improved. He has no neck pain. His left leg has been bothering for some time. He states it somewhat improved this morning. He does have a history of gout. He does have a Portillo in place that was initiated postop secondary to urinary retention. Allergies Allergy/AdvReac Type Severity Reaction Status Date / Time No Known Allergies Allergy Unknown ` Verified 05/18/18 11:30 Home Medications Home Medications Medication Instructions Recorded Confirmed Type atorvastatin [Lipitor] 10 mg PO HS 04/17/18 05/18/18 History hydrochlorothiazide 12.5 mg PO QAM 04/17/18 05/18/18 History lisinopril 10 mg PO QAM 04/17/18 05/18/18 History metformin 1,000 mg PO BID 04/17/18 05/18/18 History potassium chloride 10 meq PO QAM 04/17/18 05/18/18 History oxycodone 5 mg PO Q4H PRN #20 tab 05/11/18 05/18/18 Rx acetaminophen [Tylenol] 650 mg PO DIRECTED PRN 05/16/18 05/18/18 History gabapentin 100 mg PO Q8H PRN #20 cap 05/16/18 05/18/18 Rx Patient History Medical History Bilateral lower extremity edema (Acute) CKD (chronic kidney disease) (Acute) Acute urinary retention (Acute) Obesity DVT prophylaxis Cervical stenosis of spinal canal Calculus, ureteral Gout of left ankle (Acute) Encounter for pre-operative examination Degenerative disc disease 5TH DIGIT OF RIGHT HAND NUMB S/T NECK ISSUES. Diabetes mellitus, type 2 History of nephrolithiasis Hyperlipidemia Hypertension Kidney stones Osteoarthritis Surgical History Hx of neck surgery History of nasal surgery (Acute) History of cataract extraction with lens replacement B/L History of repair of rotator cuff LEFT Social History marital status: Life Partner Current Living Situation: Family and Significant Other current occupational status: retired current occupation: Worked for [employer] Other Information That Helps Us Care for You: No Feels Safe at Home: Yes Safety Concerns: Feels Safe At This Time Smoking Status: Never smoker Second Hand Exposure: No Hx Alcohol Use: Yes Alcohol type: beer Alcohol Intake Frequency: a few times a month Hx Substance Use: No Beliefs That Will Affect Care: None Communication Ability: Effective Physical Exam 2 Vital Signs (Past 24 Hours): Last Vital Signs Temp 36.4 C L 05/19/18 07:26 Pulse 77 05/19/18 07:26 Resp 22 05/19/18 07:26 BP 144/71 H 05/19/18 07:26 Pulse Ox 94 05/19/18 07:26 Physical Exam: On exam incision is clean dry and intact. There is no erythema there. It is nontender to palpation. Is excellent strength detailed testing bilateral upper extremities. Left lower extremity does demonstrate some swelling to the left foot greater than right. There is some erythema associate with this. Is exquisitely tender to modest palpation. Neurologically he is intact.
[2018-05-19] MEDS ORDERED: methylPREDNISolone 60 MG in SYRINGE 0 ML IV ONE (11:15)
--- NOTE | 2018-05-19 12:22 | XRay Report ---
XR cervical spine 2 or 3V HISTORY: Postoperative evaluation postop COMPARISON: 05/11/2018 FINDINGS: The cervical spine is visualized from C1 through the superior endplate of T1. There is no f racture. No subluxation. Postoperative changes consistent with a C5-C7 anterior fusion and C6 corpec mick. Alignment is anatomic. Mild prevertebral soft tissue fullness considered unremarkable on a post operative basis. IMPRESSION: Anatomic alignment post anterior C5-C7 corpectomy and fusion. The above report was generated using voice recognition software. It may contain grammatical, syntax or spelling errors. Electronically signed by: Jose Thomas M.D. 05/19/2018 12:20 PM
[2018-05-19] MEDS: ACETAMINOPHEN 325 MG TAB PO PRN (15:58)
[2018-05-19] MEDS: ATORVASTATIN 10 MG TAB PO SCH (20:27)
[2018-05-19] MEDS: HEPARIN SOD 5,000 UNIT/0.5 ML VIAL SQ SCH (20:28)
[2018-05-19] MEDS ORDERED: GLUCOSE 40% GEL 15 GM TUBE PO PRN (21:01)
[2018-05-19] MEDS ORDERED: GLUCOSE 10 TABS/TUBE PO PRN (21:01)
[2018-05-19] MEDS ORDERED: DEXTROSE 50% 50 ML SYRINGE IV PRN (21:01)
[2018-05-19] MEDS ORDERED: GLUCAGON FOR INJ 1 MG VIAL SQ PRN (21:01)
[2018-05-19] MEDS ORDERED: CARBOHYDRATES FOR HYPOGLYCEMIA PO PRN (21:01)
[2018-05-19] MEDS: INSULIN ASPART 100 UNITS/ML 3 ML PEN SC SCH (21:43)
[2018-05-20 05:48] LABS: Eosinophils # (auto) 0.02 K/uL (0-0.5); Eosinophils % (auto) 0.3 %; Hematocrit (blood only) 37.2 % (42-52); Hemoglobin 12.5 g/dL (14.0-18.0); Immature Granulocytes # (auto) 0.03 K/uL (0.00-0.02); Immature Granulocytes % (auto) 0.4 %; Lymphocytes # (auto) 0.62 K/uL (1.2-3.4); Lymphocytes % (auto) 7.9 %; Mean Corpuscular Hgb Conc 33.6 g/dL (32-36); Mean Corpuscular Volume 91.9 fL (80-100); Monocytes % (auto) 10.3 %; Neutrophils # (auto) 6.33 K/uL (1.4-6.5); Neutrophils % (auto) 81.1 %; Platelet Count 231 K/uL (130-400); RDW Coefficient of Variation 13.1 % (11.5-14.5); RDW Standard Deviation 44.2 fL (36.4-46.3); Red Blood Count 4.05 M/uL (4.7-6.1)
[2018-05-20 06:15] LABS: BUN Creatinine Ratio 21.1 (10-20); Calcium 8.6 mg/dl (8.5-10.1); Creatinine Clr Calc Pharmacy 46.7 ml/min; Est GFR (Non-African American) 35.4; Potassium 4.9 mmol/L (3.5-5.1)
--- NOTE | 2018-05-20 07:53 | Hospitalist Progress Note ---
Date of Service May 20, 2018 Assessment & Plan (1) Bilateral foot pain: Secondary to gout, see below LE US did not reveal dvt - patient does have small popliteal cyst - contributing to left knee pain? Febrile with elevated WBC on admission - resolved - will continue zosyn until cultures resulted - BC ngtd ortho spine consulted - cervical spine film showed no misalignment of surgical site PT/OT now that patient is able to walk (2) Gout: Hx of gout in both great toes, separate occurrences Patient does have uric acid crystals in urine - serum uric acid normal Will hold off on NSAIDs or colchicine due to kidney function Gave dose IV solumedrol 05/19 which resulted in significant improvement in pain - transitioned to 40 mg prednisone po and will taper (3) Acute kidney injury: Baseline creatinine is 1.3 - not improving - today 1.86 - BUN/creat ratio suggests pre renal - will increase fluids to 125 ml/hr and change from NSS 20K to NSS as potassium is high normal Continue to hold metformin, lisinopril and hctz Prp am (4) UTI (urinary tract infection): UTI due to indwelling urethral catheter - catheter for post op urinary hesitancy Continue zosyn Urine culture pending but collected after more than 12 hours of Zosyn so may not be accurate BC ngtd (5) Acute urinary retention: Portillo placed in ED on 05/12 [place] to be related to post-op status (6) Cervical stenosis of spinal canal: stable evaluated by ortho - no intervention at this time (7) DM type 2 (diabetes mellitus, type 2): Metformin at home - hold for now for hypoglycemia, renal function BSGs ac & hs, ss (8) Hyperlipidemia: continue atorvastatin (9) HTN (hypertension): holding lisinopril and hctz for kidney function, bps stable (10) 1st degree AV block: Seen on prior EKG, asx (11) Hypoglycemia: resolved (12) DVT prophylaxis: SCDs, TEDS, heparin subq Subjective Mr. Kiran's feet are feeling much better, he was able to walk to the bathroom. He has no other complaints Review of Systems All systems reviewed & are unremarkable except as noted in HPI & below Physical Exam 2 Vital Signs (Past 24 Hours): Last Vital Signs Temp 36.6 C 05/19/18 22:49 Pulse 67 05/19/18 22:49 Resp 18 05/19/18 22:49 BP 136/72 05/19/18 22:49 Pulse Ox 94 05/19/18 22:49 Physical Exam: General: no distress Eyes: normal inspection, PERLL Respiratory: chest non tender, clear to auscultation, normal breath sounds, no respiratory distress, no accessory muscle use Cardiac: regular rate and rhythm, no rub or gallop, no murmur, GI/: active bowel sounds, no abd pain or tenderness, soft, non distended Extremities: normal range of motion, normal strength, improved tenderness over bilateral lateral feet Neuro/Psych: alert and oriented x 3, normal mood and affect Skin: normal color, dry, improving erythema over bilateral lateral feet _ (1) UTI (urinary tract infection) Encounter type: Hematuria presence: with hematuria Indwelling urinary catheter type: Urinary tract infection type: site unspecified Qualified Code( s): N39.0 - Urinary tract infection, site not specified; R31.9 - Hematuria, unspecified (2) Gout Gout site: foot Gout etiology: due to renal impairment Chronicity: acute Laterality: unspecified laterality Qualified Code(s): M10.379 - Gout due to renal impairment, unspecified ankle and foot
[2018-05-20] MEDS: predniSONE 20 MG TAB PO SCH (08:47)
[2018-05-20] MEDS: POTASSIUM CHLORIDE 10 MEQ TABCR PO SCH (08:47)
[2018-05-20] MEDS: PIPERACILLIN/TAZOBACTAM 4.5 GM in DEXTROSE 5% 100 ML IV SCH ×2 (08:47→16:06)
[2018-05-20] MEDS: INSULIN ASPART 100 UNITS/ML 3 ML PEN SC SCH ×4 (08:50→21:15)
[2018-05-20] MEDS: SODIUM CHLORIDE 0.9% 1000ML 1,000 ML IV SCH ×2 (08:53→17:08)
[2018-05-20] MEDS: NSS + 20MEQ KCL 20 MEQ/1,000 ML BAG IV SCH (08:54)
[2018-05-20] MEDS: HEPARIN SOD 5,000 UNIT/0.5 ML VIAL SQ SCH ×2 (11:12→21:15)
[2018-05-20] MEDS: ATORVASTATIN 10 MG TAB PO SCH (21:14)
[2018-05-21] MEDS: SODIUM CHLORIDE 0.9% 1000ML 1,000 ML IV SCH ×2 (00:02→08:02)
[2018-05-21] MEDS: PIPERACILLIN/TAZOBACTAM 4.5 GM in DEXTROSE 5% 100 ML IV SCH ×2 (00:03→08:01)
[2018-05-21] MEDS: ACETAMINOPHEN 325 MG TAB PO PRN (00:03)
[2018-05-21 07:22] LABS: Basophils # (auto) 0.01 K/uL (0-0.2); Basophils % (auto) 0.1 %; Eosinophils # (auto) 0.15 K/uL (0-0.5); Eosinophils % (auto) 1.9 %; Hematocrit (blood only) 34.8 % (42-52); Hemoglobin 11.9 g/dL (14.0-18.0); Immature Granulocytes # (auto) 0.03 K/uL (0.00-0.02); Immature Granulocytes % (auto) 0.4 %; Lymphocytes # (auto) 1.43 K/uL (1.2-3.4); Lymphocytes % (auto) 17.8 %; Mean Corpuscular Hgb Conc 34.2 g/dL (32-36); Mean Corpuscular Volume 90.9 fL (80-100); Mean Platelet Volume 10.5 fL (7.4-10.4); Monocytes % (auto) 6.2 %; Neutrophils # (auto) 5.92 K/uL (1.4-6.5); Neutrophils % (auto) 73.6 %; Platelet Count 226 K/uL (130-400); RDW Coefficient of Variation 13.1 % (11.5-14.5); RDW Standard Deviation 43.7 fL (36.4-46.3); Red Blood Count 3.83 M/uL (4.7-6.1); White Blood Count 8.04 K/uL (4.8-10.8)
[2018-05-21 08:05] LABS: BUN Creatinine Ratio 24.7 (10-20); Calcium 8.1 mg/dl (8.5-10.1); Creatinine Clr Calc Pharmacy 71.2 ml/min; Est GFR (African American) 68.2; Est GFR (Non-African American) 58.9; Potassium 4.1 mmol/L (3.5-5.1)
[2018-05-21] MEDS: INSULIN ASPART 100 UNITS/ML 3 ML PEN SC SCH ×2 (08:54→13:08)
[2018-05-21] MEDS: HEPARIN SOD 5,000 UNIT/0.5 ML VIAL SQ SCH (08:54)
[2018-05-21] MEDS: predniSONE 20 MG TAB PO SCH (09:05)
[2018-05-21] MEDS: POTASSIUM CHLORIDE 10 MEQ TABCR PO SCH (09:05)
--- NOTE | 2018-05-21 11:33 | Discharge Summary ---
Date of Service May 21, 2018 Admission HPI Per Admitting Provider 72 y/o M c/o LE pain. Pt had a C5-6 fusion on 05/[address] Ortiz. He was doing well from this standpoint and d/c'd to home on 05/12. He states he had no pain in his LE and was able to walk without issue. The night of d/c, pt stopped being able to urinate. He had been able to urinate prior to d/c home. He was seen in the ED and a orellana was placed at that time. He was d/c'd to home. On 05/15, pt again presented to the ED, this time due to pain in his feet and LE, L>R. It was felt that this was related to post-op status. LE US were neg. Pt was d/c'd home. Pt states that over the weekend his LE pain worsened and he developed LE redness, L>R. He states that it was so painful to the bottom of his feet that he could not even walk today, so they returned to the ED. He does have mild LE swelling, L>R. No hx of cellulitis. No recent cuts or scrapes. Pt does have hx of gout in b/l great toes at separate times, but not recently. He has no pain in his toes, mostly the bottoms of the feet. It moves up to the knee on the L only. Pt states that he finds wearing the neck brace uncomfortable, but other than that has had minimal pain related to his recent surgery. He has not needed much for pain control overall. He has no headaches. Pt denies fever, SOB, chest pain , abd pain, n/v/c/d. He notes a decreased appetite since the surgery, but tolerating what he does eat. Principal Diagnosis Gout, SHANNON Discharge Exam Constitutional WD/WN, vitals as above Respiratory normal respiratory effort, lungs clear to auscultation Cardiovascular RRR, no murmur, no edema Gastrointestinal (Abdomen) normal bowel sounds, soft, nontender, no hepatosplenomegaly Musculoskeletal mild tenderness bilateral feet Skin mild erythema over bilateral lateral feet Discharge Data Allergies Allergy/AdvReac Type Severity Reaction Status Date / Time No Known Allergies Allergy Unknown ` Verified 05/18/18 11:30 Consultations 05/18/18 12:20 ED Decision to Admit Stat 05/18/18 14:46 Consult Orthopedic Surgery Routine Ordered Studies 05/18/18 11:08 US venous doppler LE Stat Hospital Course (1) Bilateral foot pain: Secondary to gout, see below LE US did not reveal dvt - patient does have small popliteal cyst - contributing to left knee pain? ortho spine consulted - cervical spine film showed no misalignment of surgical site PT/OT - recommend home with home health (2) Gout: Hx of gout in both great toes, separate occurrences Patient does have uric acid crystals in urine - serum uric acid normal Avoided NSAIDs or colchicine due to kidney function Gave dose IV solumedrol / which resulted in significant improvement in pain - transitioned to 40 mg prednisone po and will taper over 8 days (3) Acute kidney injury: Baseline creatinine is 1.3 - peaked at 1.86 and resolved with IVF - kidney function back to baseline Held metformin, lisinopril and hctz - can restart on discharge now that kidney function has resolved (4) UTI (urinary tract infection): UTI due to indwelling urethral catheter - catheter for post op urinary hesitancy Febrile with elevated WBC on admission - resolved - given Zosyn while inpatient and will discharge with 2 days of Augmentin for a total of 5 days antibiotics. Blood cultures negative Urine culture no growth but collected after more than 12 hours of Zosyn so may not be accurate U/A did show hematuria - likely due to infection but should be followed up with primary care provider (5) Acute urinary retention: Orellana placed in ED on 05/12, removed 05/20 and patient able to void without difficulty [place] to be related to post-op status (6) Cervical stenosis of spinal canal: stable evaluated by ortho - no intervention at this time (7) DM type 2 (diabetes mellitus, type 2): Metformin at home - held for now for hypoglycemia, renal function - both resolved so can restart for home Patient should check sugars at home frequently while on steroids. His blood sugars are running a bit elevated but should start to come down as he tapers off of the steroids. (8) Hyperlipidemia: continue atorvastatin (9) HTN (hypertension): held lisinopril and hctz for kidney function, bps stable - can restart for home (10) 1st degree AV block: Seen on prior EKG, asx (11) Hypoglycemia: resolved (12) DVT prophylaxis: SCDs, TEDS, heparin subq Total Time Total Time Spent Total Time Spent (In Minutes): greater than 30 minutes Total Time Includes: Examination of the Patient, Discharge Planning and Medication Reconciliation Discharge Plan Discharge Items Patient Disposition: Home - Home Health Services Reason For Visit: CELLULITIS, UTI POST OP Discharge Diagnosis: Gout Activity: Resume your previous activity Non-emergency contact: Primary Care Provider Call non-emergency contact if: you have any medication questions, your symptoms worsen, your pain is not controlled and you have a fever Diet: Carb Consistent or DM2 Addtl Provider Instructions: Please see your primary care provider within a week. The steroids you will take may increase your blood sugars. Be sure to check your sugars before meals and bed. Let your doctor know if you are consistently over 250 or if you are feeling unwell, have frequent urination or thirst. Be sure to limit your carbohydrate intake to further avoid spikes in your blood sugar. Avoid white flours, sugar and potatoes and chose whole grains instead. Home health PT/OT should evaluate and treat you. Prescriptions: New prednisone 20 mg Tablet 40 mg PO QAM 8 Days Qty: 10 RF: 0 amoxicillin-pot clavulanate [Augmentin] 500-125 mg tablet 1 tab PO BID Qty: 4 RF: 0 Continue potassium chloride 10 mEq Capsule, Extended Release 10 meq PO QAM RF: 0 atorvastatin [Lipitor] 10 mg Tablet 10 mg PO HS RF: 0 metformin 1,000 mg Tablet 1,000 mg PO BID RF: 0 lisinopril 10 mg Tablet 10 mg PO QAM RF: 0 hydrochlorothiazide 12.5 mg Capsule 12.5 mg PO QAM RF: 0 oxycodone 5 mg Tablet 5 mg PO Q4H PRN (Reason: Pain) Qty: 20 RF: 0 acetaminophen [Tylenol] 325 mg Capsule 650 mg PO DIRECTED PRN (Reason: Pain) RF: 0 gabapentin 100 mg capsule 100 mg PO Q8H PRN (Reason: pain) Qty: 20 RF: 0 Stand-Alone Forms: [facility] Discharge Orders: Discharge Order (Routine); Ordered 05/21/18 Ordered By: Lorrie Lino Admission Data Admit Date/Time: 05/18/18 13:34 Attending Provider: Ravi Da Silva Admit Provider: Janna Maurer Primary Care Provider: Jojo Peng Other Providers: Janna Maurer ; German Ortiz ; Lorrie Lino Service: Medical
== END 2018-05-21 14:45 | disposition home health service (06) | DRG 699 ==
LOC: ED 10:38 → SUATTDRO 13:34 → 3W 13:34

== ENCOUNTER 2020-06-30 05:23 | Inpatient (IN) ==
--- NOTE | 2020-06-14 14:16 | PAT Medication Instructions ---
Medication Instructions Date of Service June 14, 2020 Home Medications Medication Instructions Recorded glimepiride 2 mg tablet 2 mg PO QAM #90 tab 03/03/20 lisinopril 20 mg tablet 20 mg PO QAM #90 tab 03/03/20 metformin 1,000 mg tablet 1,000 mg PO BID #180 tab 03/03/20 potassium chloride 10 mEq 10 meq PO QAM #90 tab 03/03/20 tablet,extended release acetaminophen 650 mg tablet,extended release 650 mg PO QID PRN allopurinol 100 mg PO QAM glimepiride 2 mg tablet 2 mg PO QAM lisinopril 20 mg tablet 20 mg PO QAM metformin 1,000 mg tablet 1,000 mg PO BID potassium chloride 10 mEq tablet,extended release 10 meq PO QAM atorvastatin 20 mg PO HS chlorthalidone 25 mg PO QAM DO NOT take the morning of surgery glimepiride 2 mg tablet 2 mg PO QAM lisinopril 20 mg tablet 20 mg PO QAM metformin 1,000 mg tablet 1,000 mg PO BID potassium chloride 10 mEq tablet,extended release 10 meq PO QAM chlorthalidone 25 mg PO QAM Take morning of surgery With a small sip of water, OTHERWISE NOTHING TO EAT OR DRINK AFTER MIDNIGHT: acetaminophen 650 mg tablet,extended release 650 mg PO QID PRN (if needed, may be taken up to four hours before surgery) allopurinol 100 mg PO QAM Take evening before surgery acetaminophen 650 mg tablet,extended release 650 mg PO QID PRN (if needed) metformin 1,000 mg tablet 1,000 mg PO BID atorvastatin 20 mg PO HS Other Notes If you have any questions please call us at [phone] or [phone] or [phone] or [phone]
--- NOTE | 2020-06-16 09:43 | Anesthesiology Consultation ---
Date of Service June 16, 2020 Assessment & Plan (1) Encounter for pre-operative examination: COVID Status: As of 06/16 assessment, patient denies travel to endemic area, known exposure/sick contacts, or symptoms of COVID19. Patient instructed that they and their household members must follow strict social distancing guidelines, wear a mask in public and avoid travel/events/gatherings for 14 days prior to surgery. Preoperative COVID19 testing to be completed prior to surgery per surgeon's arrangements (06/26). Patient made aware to self-isolate as much as possible between COVID testing and surgery. BSG AM DOS Chart Review Chart Review: Acceptable Risk for Surgery and Patient seen in Pre Admission Testing Teaching & Discussion Instructed NPO after midnight before surgery, except medications with 15 cc of water. Medication instructions provided according to the PAT guidelines. History Surgery Operation Date: 06/30/20 07:00 Proposed Procedures p C5-T1 Posterior Cervical Discectomy and Fusion, Allograft, Infuse, Spinal Cord Monitoring (MEP, SSEP, EMG, Trigger EMG) - Candida Walker MD Height/Weight Height: 5 ft 10 in Weight: 122.6 kg Allergies Allergy/AdvReac Type Severity Reaction Status Date / Time No Known Allergies Allergy Unknown ` Verified 06/14/20 09:19 Medications Home Medications Medication Instructions Recorded Confirmed Last Taken acetaminophen 650 mg 650 mg PO QID PRN tab 01/12/19 06/14/20 Unknown tablet,extended release allopurinol 100 mg PO QAM 04/02/19 06/14/20 04/18/19 08:00 glimepiride 2 mg tablet 2 mg PO QAM #90 tab 03/03/20 06/14/20 Unknown lisinopril 20 mg tablet 20 mg PO QAM #90 tab 03/03/20 06/14/20 Unknown metformin 1,000 mg tablet 1,000 mg PO BID #180 tab 03/03/20 06/14/20 Unknown potassium chloride 10 mEq 10 meq PO QAM #90 tab 03/03/20 06/14/20 Unknown tablet,extended release atorvastatin 20 mg PO HS 06/14/20 06/14/20 Unknown chlorthalidone 25 mg PO QAM 06/14/20 06/14/20 Unknown Past Medical History Medical History (Updated 06/19/20 @ 08:38 by Sam Solitario) Cervical stenosis of spinal canal CKD (chronic kidney disease) pt unaware. Baseline Cr per records around 1.5. Degenerative disc disease Diabetes mellitus, type 2 NIDDM Diverticular disease Gout History of kidney stones no surgical intervention Hyperlipidemia Hypertension Osteoarthritis Exercise / Class Metabolic Activity II 4-5 Yardwork/Stairs/Walk up hill (Has flight of 13 steps he does many times per day, denies GREY or CP) Past Family History Family History (Updated 06/14/20 @ 09:36 by Mali Coleman RN) Father Family history of diabetes mellitus Mother Family history of diabetes mellitus Other Family history non-contributory No family history of adverse response to anesthesia Denies family history of Ovarian cancer Prostate cancer Myocardial infarction Breast cancer Colorectal cancer Stroke Past Surgical History Surgical History History of cataract extraction with lens replacement B/L History of colonoscopy History of fusion of cervical spine 05/11/18 [facility] - ROM WNL. History of nasal surgery History of repair of rotator cuff LEFT Past Anesthesia History No Hx of Anesthesia Complications and No Family Hx of Anesthesia Complications History of PONV No Hx of PONV and No Hx of Motion Sickness Social History Smoking Status: Never smoker Do You Dip or Chew Tobacco: No Hx Alcohol Use: Yes Alcohol type: beer alcohol intake frequency: a few times a month Hx Substance Use: No substance use type: does not use Review of Systems Pt denies any recent chest pain, shortness of breath, palpitations, cough, fever, URI, or uncontrolled acid reflux. Physical Exam Vital Signs BP: 143/81 P: 57bpm SPO2: 95% T: 98.1 F R: 16 ENMT Mouth: + dentures, + edentulous and + macroglossia Thyromental Distance: > or= 3.5 Finger Breadths Mallampati Class: III Neck + short neck and + facial hair (medium length nkechi-style kline (no mustache)); neck extension not limited Respiratory normal respiratory effort, lungs clear to auscultation Cardiovascular RRR, no murmur, no edema Testing Laboratory Results 06/16/20 09:52 06/16/20 09:52 Hemoglobin A1c 7.4 % (4.5-5.6) H 06/16/20 09:52 Blood Type O Negative 06/16/20 09:52 Antibody Screen NEGATIVE 06/16/20 09:52 eGFR 42.5 c/w known stage III CKD. Electrocardiogram Date: 06/16/20 Findings: + SB @ (54bpm) with 1st degree AV block. RSR' or QR' pattern in V1 suggests RVCD. Chest X-Ray Date: 06/16/20 Findings: + NAD
--- NOTE | 2020-06-16 10:29 | XRay Report ---
XR chest Pre-admission PA/Lat HISTORY: 74 years-old Male pat preoperative exam. No acute chest complaints COMPARISON: Chest radiograph 05/18/2018, CT abdomen pelvis 06/05/2012, thoracic spine radiographs 06/17/19 15. TECHNIQUE: PA and lateral views of the chest FINDINGS: Cardiomediastinal and hilar silhouettes are within normal limits. There is no pneumothorax, pleural e ffusion, airspace consolidation or overt pulmonary edema. Likely chronic fracture of L1. Cervical spi nal fusion hardware. IMPRESSION: No acute process. ACT 112: Negative or not required by law. The above report was generated using voice recognition software. It may contain grammatical, syntax o r spelling errors. Electronically signed by: Rafael Salvador M.D. 06/16/2020 10:27 AM
[2020-06-16 11:37] LABS: Basophils # (auto) 0.02 K/uL (0-0.2); Basophils % (auto) 0.3 %; Eosinophils # (auto) 0.13 K/uL (0-0.5); Eosinophils % (auto) 1.6 %; Hematocrit (blood only) 44.7 % (42-52); Hemoglobin 15.3 g/dL (14.0-18.0); Immature Granulocytes # (auto) 0.03 K/uL (0.00-0.02); Immature Granulocytes % (auto) 0.4 %; Lymphocytes # (auto) 1.31 K/uL (1.2-3.4); Lymphocytes % (auto) 16.6 %; Mean Corpuscular Hemoglobin 31.7 pg (25-34); Mean Corpuscular Hgb Conc 34.2 g/dL (32-36); Mean Corpuscular Volume 92.5 fL (80-100); Mean Platelet Volume 11.7 fL (7.4-10.4); Monocytes # (auto) 0.49 K/uL (0.11-0.59); Monocytes % (auto) 6.2 %; Neutrophils % (auto) 74.9 %; Platelet Count 203 K/uL (130-400); RDW Coefficient of Variation 13.6 % (11.5-14.5); RDW Standard Deviation 46.1 fL (36.4-46.3); Red Blood Count 4.83 M/uL (4.7-6.1); White Blood Count 7.88 K/uL (4.8-10.8)
[2020-06-16 11:43] LABS: Estimated Average Glucose 166 mg/dl; Hemoglobin A1C 7.4 % (4.5-5.6)
[2020-06-16 12:14] LABS: BUN Creatinine Ratio 16.6 (10-20); Calcium 9.6 mg/dl (8.5-10.1); Creatinine Clr Calc Pharmacy 53.9 ml/min; Est GFR (African American) 49.2; Est GFR (Non-African American) 42.5; Potassium 4.9 mmol/L (3.5-5.1)
--- NOTE | 2020-06-16 12:36 | Electrocardiogram Report ---
Test Reason : Blood Pressure : / mmHG Vent. Rate : 054 BPM Atrial Rate : 054 BPM P-R Int : 246 ms QRS Dur : 122 ms QT Int : 432 ms P-R-T Axes : 055 081 075 degrees QTc Int : 409 ms Sinus bradycardia with 1st degree A-V block RSR' or QR pattern in V1 suggests right ventricular conduction delay Borderline ECG When compared with ECG of 18-MAY-2018 11:11, Vent. rate has decreased BY 35 BPM QT has shortened Confirmed by Jonathan Tomas ([id number]) on 06/16/2020 12:36:33 PM Referred By: Candida Walker Confirmed By:Jonathan Tomas
[2020-06-30] MEDS ORDERED: LR 15ML/HR IV SCH (06:00)
[2020-06-30] MEDS ORDERED: LR 60ML/HR IV SCH (06:00)
[2020-06-30] MEDS ORDERED: REMIFENTANIL HCL 1 MG VIAL ONE ×4 (06:26→13:40)
[2020-06-30] MEDS ORDERED: PROPOFOL IV EMULSION 10 MG/ML 100 ML VIAL IV ONE ×5 (06:27→12:27)
--- NOTE | 2020-06-30 06:39 | History & Physical Bridge Note ---
Date of Service June 30, 2020 History & Physical Bridge Note I have examined the patient, reviewed the History & Physical and in the interval since the performance of the History & Physical I have noted the following changes of clinical significance: no symptomatic changes noted motor exam grossly intact upper and lower extremity except b/l C8 and T1 4/5 light touch exam grossly intact upper and lower extremity except b/l C8 1/2
[2020-06-30] MEDS ORDERED: LIDOCAINE HCL 2% 2 ML VIAL/AMP(20MG/ML) INFIL ONE (06:51)
[2020-06-30] MEDS ORDERED: PROPOFOL IV EMULSION 10 MG/ML 20 ML VIAL IV ONE (06:51)
[2020-06-30] MEDS ORDERED: TRANEXAMIC ACID / 0.7% NACL 1,000 MG/100 ML BAG IV ONE ×2 (06:52)
[2020-06-30] MEDS ORDERED: fentaNYL citrate 100 MCG/2 ML VIAL ONE ×2 (06:52→14:50)
[2020-06-30] MEDS ORDERED: MIDAZOLAM HCL 1 MG/ML 2ML VIAL ONE (06:52)
[2020-06-30] MEDS ORDERED: BACITRACIN OINT 15 GM TUBE ONE (07:09)
[2020-06-30] MEDS ORDERED: THROMBIN 5000 UNITS KIT ONE ×2 (07:10→12:55)
[2020-06-30] MEDS ORDERED: GELATIN SPONGE SZ 100 ONE (07:10)
[2020-06-30] MEDS ORDERED: VANCOMYCIN HCL 1000MG/20ML VIAL ONE (07:10)
[2020-06-30] MEDS ORDERED: PHENYLEPHRINE HCL 10 MG/ML VIAL ONE (12:06)
[2020-06-30] MEDS ORDERED: THROMBIN FOR SOLN 20000 UNIT KIT ONE (12:55)
[2020-06-30] MEDS ORDERED: ALBUMIN HUMAN 5% 12.5 GM/250 ML VIAL IV ONE (13:39)
--- NOTE | 2020-06-30 14:18 | XRay Report ---
XR cervical spine 2 or 3V CLINICAL HISTORY: C5-T1 POSTERIOR CERVICAL DISCECTOMY AND FUSION COMPARISON STUDY: CT scan dated 06/20/2020 FINDINGS: 12 intraoperative x-rays are provided for interpretation. Visualization is exceedingly limi blair as there is poor penetration due to the patient's shoulders. There is an endotracheal tube in celina ce. There are postsurgical changes of a C5-7 anterior cervical discectomy and fusion. Posterior screw s are visualized at the C5, C6, and T1 levels. IMPRESSION: 1. Significantly limited study from a technical standpoint 2. Postsurgical changes as described above ACT 112: Negative or not required by law. Electronically signed by: Ronald Anderson M.D. 06/30/2020 2:16 PM
[2020-06-30] MEDS ORDERED: FLOSEAL HEMOSTATIC MATRIX 10ML TOP ONE (14:32)
[2020-06-30] MEDS ORDERED: fentaNYL citrate 100 MCG/2 ML VIAL IV PRN (14:52)
[2020-06-30] MEDS ORDERED: ATROPINE SULFATE 0.1 MG/ML 10ML SYR IV PRN (14:52)
[2020-06-30] MEDS ORDERED: HYDROmorphone INJ 1 MG/ML SYRINGE IV PRN (14:52)
[2020-06-30] MEDS ORDERED: PROMETHAZINE HCL 12.5 MG in SODIUM CHLORIDE 0.9% 50 ML IV PRN ×2 (14:52→16:58)
[2020-06-30] MEDS ORDERED: FLUMAZENIL 0.1 MG/1 ML 10 ML VIAL IV PRN (14:52)
[2020-06-30] MEDS ORDERED: LABETALOL HCL IV 5 MG/ML 20ML IV PRN (14:52)
[2020-06-30] MEDS ORDERED: ePHEDrine sulfate 50 MG/ML AMP IV PRN (14:52)
[2020-06-30] MEDS ORDERED: ONDANSETRON INJ 2 MG/ML 2 ML VIAL IV PRN ×2 (14:52→16:58)
[2020-06-30] MEDS ORDERED: NALOXONE HCL 0.4 MG/1 ML VIAL/CARP IV PRN ×2 (14:52→16:58)
[2020-06-30] MEDS ORDERED: HYDROmorphone INJ 2 MG/ML SYR/VIAL ONE (14:53)
[2020-06-30 15:05] LABS: iSTAT Arterial Blood Gas HCO3 23 meg/L (19-24); iSTAT Arterial Blood Gas pCO2 39 mmHg (35-46); iSTAT Arterial Blood Gas pH 7.37 (7.35-7.45); iSTAT Arterial Blood Gas pO2 369 mmHg (80-95); iSTAT Carbon Dioxide 24 mmol/L (24-31); iSTAT Hematocrit 37 % (42-52); iSTAT Hemoglobin 12.6 g/dl (14.0-18.0); iSTAT Potassium 3.4 mmol/L (3.3-5.0); iSTAT Sodium 138 mmol/L (135-144)
--- NOTE | 2020-06-30 15:35 | Post Operative Brief Note ---
PG Immediate Post Op with CF Date of Surgery June 30, 2020 Pre & Post Diagnosis Operation Date: 06/30/20 07:00 Pre-Op Diagnosis: Cervical Radiculopathy, myelopathy Post-Op Diagnosis: Cervical Radiculopathy, myelopathy I identified the patient and participated in the time-out.: Yes Procedure Operation Date: 06/30/20 07:00 Actual Procedures p C5-T1 Posterior Cervical Discectomy and Fusion, Allograft, Spinal Cord Monitoring (MEP, SSEP, EMG, Trigger EMG)(Not Applicable) - Candida Walker MD Surgeon Candida Walker MD Rn Invasive Donny Blackburn Estimated Blood Loss 250 Findings Consistent with Post-Op Diagnosis Drains Portillo Catheter
--- NOTE | 2020-06-30 16:16 | Anesthesiology Progress Note ---
Date of Service June 30, 2020 Anesthesia Post Procedure Vital Signs Vital Signs: Temp Pulse Pulse Resp BP BP Pulse Ox 06/30/20 16:05 86 15 144/74 H 94 06/30/20 15:55 88 16 138/92 97 06/30/20 15:45 87 14 143/75 H 98 06/30/20 15:35 91 H 18 140/83 97 06/30/20 15:28 97.3 F L 94 H 16 117/73 95 06/30/20 06:04 97.9 F 67 18 147/88 H 93 Transfer of Care Handoff Completed per policy Notes Mental Status: alert / awake / arousable and participated in evaluation Patient Amnestic to Procedure: Yes Nausea / Vomiting: adequately controlled Pain: adequately controlled Airway Patency, RR, SpO2: stable & adequate BP & HR: stable & adequate Hydration State: stable & adequate Anesthetic Complications: no major complications apparent and Pt Satisfied with anesthetic care
[2020-06-30] MEDS ORDERED: DO NOT ADMINISTER FLU VACCINE PRN (16:58)
[2020-06-30] MEDS ORDERED: ACETAMINOPHEN 1,000 MG/100 ML VIAL IV PRN (16:58)
[2020-06-30] MEDS ORDERED: MAGNESIUM HYDROXIDE SUSP 30 ML UDC PO PRN (16:58)
[2020-06-30] MEDS ORDERED: SOD PHOSPHATE/SOD BIPHOSPHATE ENEMA 132 ML BTL PR PRN (16:58)
[2020-06-30] MEDS ORDERED: HYDROmorphone INJ 0.5 MG/0.5 ML SYR IV PRN (16:58)
[2020-06-30] MEDS ORDERED: diphenhydrAMINE Capsule 25 MG CAP PO PRN (16:58)
[2020-06-30] MEDS ORDERED: LORazepam 0.5 MG/1 ML VIAL IV PRN (16:58)
[2020-06-30] MEDS ORDERED: ONDANSETRON 4 MG OD TAB PO PRN (16:58)
[2020-06-30] MEDS ORDERED: dexAMETHasone 8 MG in SYRINGE 0 ML IV PRN (16:58)
[2020-06-30] MEDS ORDERED: METOCLOPRAMIDE HCL INJ 5 MG/ML 2 ML VIAL IV PRN (16:58)
[2020-06-30] MEDS ORDERED: DO NOT ADMINISTER PNEUMOCOCCAL VACCINE PRN (16:58)
[2020-06-30] MEDS ORDERED: FAMOTIDINE 20 MG TAB PO PRN (16:58)
[2020-06-30] MEDS ORDERED: LORazepam 0.5 MG TAB PO PRN (16:58)
[2020-06-30] MEDS ORDERED: ACETAMINOPHEN 500 MG TAB PO PRN (16:58)
[2020-06-30] MEDS ORDERED: ALUMINUM/MAGNESIUM SUSP 30 ML UDC PO PRN (16:58)
[2020-06-30] MEDS ORDERED: PHARMACY GLYCEMIC MGMT CONSULT SCH (17:07)
[2020-06-30] MEDS: LACTATED RINGER'S 1,000 ML IV SCH (18:15)
[2020-06-30] MEDS: HYDROmorphone INJ 1 MG/ML SYRINGE IV PRN ×2 (18:20→21:46)
[2020-06-30] MEDS: INSULIN ASPART 100 UNITS/ML 3 ML PEN SC SCH ×2 (18:21→20:45)
[2020-06-30] MEDS: ceFAZolin 2000MG 2,000 MG/15 ML SYR IV SCH (18:21)
--- NOTE | 2020-06-30 19:46 | Pharmacy Report ---
Pharmacy Glycemic Short Note 2 - Date of Service June 30, 2020 - Glycemic Short BSG Results (Last 24 hours): 06/30/20 06/30/20 06/30/20 05:48 11:57 15:30 POC Glucose 155 H 142 H 141 H 06/30/20 17:06 POC Glucose 193 H OUTPATIENT ANTIDIABETIC REGIMEN: * glimepiride, metformin * A1c 7.4% ASSESSMENT: * Patient s/p surgery, POD 0 - pharmacy consulted to help with glycemic management postop. Patient did not receive any steroids. Post op BSG elevated at 193 mg/dL, likely related to stress from surgery * Plan to hold oral diabetic agents, and start novolog with stress of 2 dosing. May consider adding some basal insulin at HS if BSGs remain elevated PLAN FOR INPATIENT GLYCEMIC CONTROL: * Hold outpatient oral diabetes medications * Basal insulin * Lantus 0-10 units HS based upon BSG value * Bolus insulin * NovoLog per scale ACHS or Q6hrs while NPO * Goal Range: Low 110 mg/dL - High 140 mg/dL * Correction Factor: 20 mg/dL/unit * Nutritional / Prandial insulin per carb ratio of 1 unit per 7 grams CHO consumed PLAN FOR DISCHARGE: * 7.4% - goal ~7% / reasonable to continue home oral diabetic agents on discharge as long as no contraindications are present.
--- NOTE | 2020-06-30 19:53 | Hospitalist Consultation ---
Date of Consultation June 30, 2020 Assessment & Plan (1) DM type 2 (diabetes mellitus, type 2): 75 yo M w/ cervical radiculopathy, myelopathy w/ pMHx. of CKD, DJD, DMII, Diverticular disease, gout, Hx. of kidney stones, HLD, HTN, OA now s/p pC-5-T1 cervical discectomy and fusion, allograft, spinal cord monitoring consulted for medical management. post operative cervical discectomy and fusion, allograft, spinal cord monitoring - received Ancef intraoperatively, no trouble breathing or shortness of breath - pain well controlled with Flexeril, and PRN Dilaudid - GlideScope outside of room DM II, last A1c 7.6 - held metformin and glimepride while hospitalized - most recent blood sugar 194 - not currently getting steroids - Q6H blood sugars - on sliding scale CF 20, 10 per 7g, with goal of 110-140 - ordered Lantus 10 BID HTN - continue Lisinopril, Chlorthalidone HLD - continue Atorvastatin Diet: full liquid, DM II Code status: previously full code DVT: SCD's Supervising Physician Co-Signing Physician Notes Patient seen and examined, chart reviewed, case discussed with DR. Steele and I agree with his assessment and plan as above. Briefly, patient is a 75yo male with history of cervical radiculopathy and myopathy s/p C5-T1 posterior cervical discectomy performed by Dr. Walker today. Surgery was well tolerarted with no complications identified. EBL of 250. Patient doing well with no complaints at present. Pain is well controlled. Sensation and function are improving On exam patient is afebrile, HD stable, NAD Skin - intact HEENT - collar in place, MMM, voice clear, no stridor Heart- +S1/S2, regular, no m/r/g Lungs - CTA Abd - +BS, soft, NT/ND Ext- No edema Sensation to light touch intact in UE/LE bilaterally, mobitily intact Labs reviewed Assessment/Plan -DM - hold oral agents - Gef=558 at 20:28. Patient received 6u aspart correctional. Will start Lantus as well - 10u BID - goal blood sugar 100 - 140, ISS. HgbA1C on 06/16/20 = 7.4 -HTN - Lisinopril and Chlorthalidone to resume tomorrow. BP acceptable now at 131/80 -HLP - continue Atorvastatin -Pain, nausea and bowel regimen per primary surgical team History of Present Illness Attending Physician: Candida Walker MD Consulted for medical management of patient s/p pC5-T1 cervical discectomy and fusion, allograft, spinal cord monitoring (MEP, SSEP, EMG, trigger EMG) Mr. Antwan Kiran has a past medical history of diabetes that he has had for the last 6 years. He takes Metformin and Glimepiride at home. His last A1C was about 2 months ago and it was 7.6. He follows with a primary doctor at [facility]. He has not had any complications associated with his diabetes. He has not had any hospitalizations in the recent past. He is also on Chlorthalidones and Lisinopril for hypertension; Allopurinol for Gout and Atorvastatin for hyperlipidemia. He was feeling well with no pain, no questions. No known allergies Allergies Allergy/AdvReac Type Severity Reaction Status Date / Time No Known Allergies Allergy Unknown ` Verified 06/30/20 05:48 Home Medications Medication Instructions Recorded Confirmed Type acetaminophen 650 mg 650 mg PO QID PRN tab 01/12/19 06/30/20 History tablet,extended release allopurinol 100 mg PO QAM 04/02/19 06/30/20 History glimepiride 2 mg tablet 2 mg PO QAM #90 tab 03/03/20 06/14/20 Rx lisinopril 20 mg tablet 20 mg PO QAM #90 tab 03/03/20 06/14/20 Rx metformin 1,000 mg tablet 1,000 mg PO BID #180 tab 03/03/20 06/14/20 Rx potassium chloride 10 mEq 10 meq PO QAM #90 tab 03/03/20 06/14/20 Rx tablet,extended release atorvastatin 20 mg PO HS 06/14/20 06/14/20 History chlorthalidone 25 mg PO QAM 06/14/20 06/14/20 History Patient History Medical History Cervical stenosis of spinal canal CKD (chronic kidney disease) pt unaware. Baseline Cr per records around 1.5. Degenerative disc disease Diabetes mellitus, type 2 NIDDM Diverticular disease Gout History of kidney stones no surgical intervention Hyperlipidemia Hypertension Osteoarthritis Surgical History History of cataract extraction with lens replacement B/L History of colonoscopy History of fusion of cervical spine 05/11/18 [facility] - ROM WNL. History of nasal surgery History of repair of rotator cuff LEFT Family History Father Family history of diabetes mellitus Mother Family history of diabetes mellitus Other Family history non-contributory No family history of adverse response to anesthesia Denies family history of Ovarian cancer Prostate cancer Myocardial infarction Breast cancer Colorectal cancer Stroke Social History Smoking Status: Never smoker Second Hand Exposure: No; Do You Dip or Chew Tobacco: No; Tobacco Cessation Education Requested by Patient: No Hx Alcohol Use: Yes Alcohol type: beer Hx Substance Use: No Preferred Language: Romanian Communication Ability: Effective Visual Impairment: Limited Hearing Ability: Normal Academic Tutor Required: No Beliefs That Will Affect Care: None marital status: Single Current Living Situation: Significant Other current occupational status: retired current occupation: Worked for [employer] Other Information That Helps Us Care for You: No Feels Safe at Home: Yes Safety Concerns: Feels Safe At This Time Dental Care, Regularly: No Seatbelt Use: never Assistive Devices: Denture - Upper, Denture - Lower and Glasses Review of Systems Review of Systems: Constitutional: denies fevers, chills Cardiac: denies chest pain, palpitations, pre-syncope, syncope GI: denies nausea, vomiting, constipation, diarrhea Pulm.: denies cough, shortness of breath, trouble breathing : denies urinary frequency, urgency, pain Physical Exam Constitutional: WD/WN, vitals as above Eyes: PERRL, conjunctivae normal, anicteric sclerae ENMT: external ear and nose normal, oropharynx normal Neck: normal visual inspection Respiratory: normal respiratory effort, lungs clear to auscultation Cardiovascular: RRR, no murmur, no edema Gastrointestinal (Abdomen): normal bowel sounds, soft, nontender, no hepatosplenomegaly Skin: no rashes, warm and dry Neurologic: no focal motor deficits Psychiatric: A+Ox3, euthymic affect Results & Data Results & Data ([facility]) Vital Signs (Past 12 Hours) Vital Signs Temp Pulse Pulse Resp BP Pulse Ox 06/30/20 19:28 90 18 93 06/30/20 19:13 36.6 C 93 H 19 151/79 H 94 06/30/20 18:05 100 H 18 94 06/30/20 17:15 88 145/81 H 06/30/20 17:00 36.9 C 89 19 146/80 H 93 06/30/20 16:45 93 H 15 125/91 92 06/30/20 16:35 89 16 135/74 93 06/30/20 16:25 36.1 C L 92 H 15 142/77 H 92 06/30/20 16:15 89 14 141/81 H 94 06/30/20 16:05 86 15 144/74 H 94 06/30/20 15:55 88 16 138/92 97 06/30/20 15:45 87 14 143/75 H 98 06/30/20 15:35 91 H 18 140/83 97 06/30/20 15:28 36.3 C L 94 H 16 117/73 95 CBC Results Results Complete Blood Count Results: 2 RBC 4.83 M/uL (4.7-6.1) 06/16/20 WBC 7.88 K/uL (4.8-10.8) 06/16/20 Hgb 15.3 g/dL (14.0-18.0) 06/16/20 Hct 44.7 % (42-52) 06/16/20 Plt Count 203 K/uL (130-400) 06/16/20 Chemistry (BMP) Results BMP Results: Sodium 138 mmol/L (136-145) 06/16/20 Potassium 4.9 mmol/L (3.5-5.1) 06/16/20 Chloride 105 mmol/L (98-107) 06/16/20 BUN 26 mg/dl (7-18) H 06/16/20 Creatinine 1.58 mg/dl (0.6-1.4) H 06/16/20 Glucose 157 mg/dl (70-99) H 06/16/20 Resident Activity Tracking Resident Involvement: Resident Care Provided Care Provided: Adult [facility] Medicine
[2020-06-30] MEDS ORDERED: LANTUS PER UNIT CHARGE SQ ONE (20:43)
[2020-06-30] MEDS: GABAPENTIN 300 MG CAP PO SCH (20:44)
[2020-06-30] MEDS: ATORVASTATIN 20 MG TAB PO SCH (20:44)
[2020-06-30] MEDS: CYCLOBENZAPRINE HCL 10 MG TAB PO SCH (20:44)
[2020-06-30] MEDS: DOCUSATE SODIUM/SENNA 50/8.6MG TAB PO SCH (20:44)
[2020-06-30] MEDS ORDERED: metFORMIN HCL 500 MG TAB PO SCH (21:00)
--- NOTE | 2020-07-01 01:03 | Billing Data ---
Date of Service June 30, 2020 Coding Level of Care Code 50065 Inpt Consult Level 3
[2020-07-01] MEDS: ceFAZolin 2000MG 2,000 MG/15 ML SYR IV SCH (02:30)
[2020-07-01] MEDS: LACTATED RINGER'S 1,000 ML IV SCH ×2 (03:56→13:08)
[2020-07-01] MEDS: POLYETHYLENE (MIRALAX) 17 GM PACK PO SCH ×4 (05:54→23:37)
[2020-07-01] MEDS: CYCLOBENZAPRINE HCL 10 MG TAB PO SCH ×3 (05:54→21:36)
[2020-07-01] MEDS: oxyCODONE/ACETAMINOPHEN 5mg/325mg TAB PO PRN ×4 (05:54→19:44)
[2020-07-01 06:07] LABS: Basophils # (auto) 0.01 K/uL (0-0.2); Basophils % (auto) 0.1 %; Eosinophils # (auto) 0.11 K/uL (0-0.5); Eosinophils % (auto) 1.1 %; Hematocrit (blood only) 36.7 % (42-52); Hemoglobin 12.6 g/dL (14.0-18.0); Immature Granulocytes # (auto) 0.02 K/uL (0.00-0.02); Immature Granulocytes % (auto) 0.2 %; Lymphocytes # (auto) 0.48 K/uL (1.2-3.4); Lymphocytes % (auto) 4.8 %; Mean Corpuscular Hemoglobin 31.4 pg (25-34); Mean Corpuscular Hgb Conc 34.3 g/dL (32-36); Mean Corpuscular Volume 91.5 fL (80-100); Mean Platelet Volume 11.5 fL (7.4-10.4); Monocytes # (auto) 0.66 K/uL (0.11-0.59); Monocytes % (auto) 6.6 %; Neutrophils # (auto) 8.66 K/uL (1.4-6.5); Neutrophils % (auto) 87.2 %; Platelet Count 147 K/uL (130-400); RDW Coefficient of Variation 13.3 % (11.5-14.5); RDW Standard Deviation 44.5 fL (36.4-46.3); Red Blood Count 4.01 M/uL (4.7-6.1); White Blood Count 9.94 K/uL (4.8-10.8)
[2020-07-01 06:30] LABS: BUN Creatinine Ratio 13.4 (10-20); Calcium 9.1 mg/dl (8.5-10.1); Creatinine Clr Calc Pharmacy 58.3 ml/min; Est GFR (African American) 55.6; Potassium 4.1 mmol/L (3.5-5.1)
[2020-07-01 07:30] LABS: Estimated Average Glucose 163 mg/dl; Hemoglobin A1C 7.3 % (4.5-5.6)
--- NOTE | 2020-07-01 08:49 | XRay Report ---
XR cervical spine 2 or 3V CLINICAL HISTORY: post-op spine surgery COMPARISON STUDY: CT scan dated 06/20/2020 FINDINGS: There are postsurgical changes of a C6 corpectomy. There is anterior metallic plate with C5 and C7 screws. There is also evidence for a posterior fusion extending from the C5-T1 level. IMPRESSION: 1. Postsurgical changes of a C5-T1 posterior cervical fusion. 2. Postsurgical changes of a C6 corpectomy with anterior fusion. ACT 112: Negative or not required by law. Electronically signed by: Ronald Anderson M.D. 07/01/2020 8:48 AM
[2020-07-01] MEDS: CHLORTHALIDONE 25 MG TAB PO SCH (08:54)
[2020-07-01] MEDS: POTASSIUM CHLORIDE 10 MEQ TABCR PO SCH (08:54)
[2020-07-01] MEDS: GABAPENTIN 300 MG CAP PO SCH ×2 (08:54→20:36)
[2020-07-01] MEDS: lisinopril 20 MG TAB PO SCH (08:54)
[2020-07-01] MEDS: allopurinoL 100 MG TAB PO SCH (08:55)
[2020-07-01] MEDS ORDERED: GLIMEPIRIDE 2 MG TAB PO SCH (09:00)
[2020-07-01] MEDS ORDERED: INSULIN GLARGINE SOLOSTAR 100 UNITS/ML 3 ML PEN SC SCH (09:00)
[2020-07-01] MEDS: INSULIN ASPART 100 UNITS/ML 3 ML PEN SC SCH ×4 (10:04→20:38)
--- NOTE | 2020-07-01 11:27 | Orthopedic Progress Note ---
Date of Service July 01, 2020 Assessment & Plan (1) Status post spinal surgery: continue mobilization monitor drain output thoracic/swimmer's view films ordered to better visualize thoracic screws possible d/c tomorrow AM Admission and Anticipated Discharge Date Admission Date: June 30, 2020 Subjective pain well controlled no new numbness/weakness noted improvement of sensation right hand subjectively no radicular symptoms to upper extremity eating/drinking well sat in chair last night Review of Systems Review of Systems: All systems reviewed & are unremarkable except as noted in HPI & below Physical Exam Physical Exam: dressing: mild serosang discharge drain: deep 50cc, superficial 0cc/8hr neuro: grossly intact motor upper and lower extremity right C8 4+/5, right T1 4/5, left C8 4+/5, left T1 4/5 light touch intact upper and lower extremity b/l C8 1/2 Results & Data ([facility]) Vital Signs (Past 12 Hours) Vital Signs Temp Pulse Pulse Resp BP Pulse Ox 07/01/20 09:28 36.8 C 101 H 18 132/80 90 07/01/20 07:29 92 H 18 92 07/01/20 07:15 36.8 C 95 H 18 138/80 91 07/01/20 07:00 93 H 07/01/20 03:27 89 17 95 07/01/20 03:06 36.8 C 89 17 118/77 95 06/30/20 23:28 36.6 C 96 H 19 131/80 94 Diagnostic Findings post-op x-rays upright cervical spine show appropriate positioning of cervical screws. thoracic screws not well-visualized due to soft tissue interference in lateral films PG Care Time/CCT Total # of Minutes Spent Total Time Spent with Patient: Total time spent is greater than 50% in coordination of care (as documented) at patient's floor/unit and/or counseling patient: Coding Level of Care Code None Diagnoses Status post spinal surgery Z98.890 Comment [id number]
--- NOTE | 2020-07-01 12:40 | XRay Report ---
THORACIC SPINE 3 VIEWS HISTORY: +swimmer view; upright, post-op films COMPARISON: Cervical spine 06/30/2020. FINDINGS: Anterior and posterior cervical fusion noted within the lower cervical spine. The posterior fusion hardware is located from C5 through T1. No fracture or subluxation within the thoracic spine. Mild disc space narrowing within the lower thoracic spine. Moderate facet degenerative changes. Disc spaces are preserved. IMPRESSION: 1. No acute fractures within the thoracic spine. 2. Anterior and posterior cervical spinal fusion is again noted. The posterior fusion hardware is loc ated from C5 through T1. The visualized hardware appears intact. ACT 112: Negative or not required by law. Electronically signed by: Sly Brock M.D. 07/01/2020 12:39 PM
--- NOTE | 2020-07-01 13:03 | Pharmacy Report ---
Pharmacy Glycemic Short Note 2 - Date of Service July 01, 2020 - Glycemic Short BSG Results (Last 24 hours): 06/30/20 06/30/20 06/30/20 15:30 17:06 20:28 Glucose POC Glucose 141 H 193 H 214 H 07/01/20 07/01/20 07/01/20 05:32 07:14 11:19 Glucose 165 H POC Glucose 162 H 289 H OUTPATIENT ANTIDIABETIC REGIMEN: * glimepiride, metformin * A1c 7.4% ASSESSMENT: 07/01 * POD 1, likely DC tomorrow * Fasting BSG 165mg/dl, blood sugars ranging 141-289mg/dl over past 24 hours, no steroids received * Patient had 10 units of Lantus last night, will increase dose today * Tighten CR for high postprandial BSGs 06/30 * Patient s/p surgery, POD 0 - pharmacy consulted to help with glycemic management postop. Patient did not receive any steroids. Post op BSG elevated at 193 mg/dL, likely related to stress from surgery * Plan to hold oral diabetic agents, and start novolog with stress of 2 dosing. May consider adding some basal insulin at HS if BSGs remain elevated PLAN FOR INPATIENT GLYCEMIC CONTROL: * Hold outpatient oral diabetes medications * Basal insulin - INCREASE * Lantus 15 units SQ Daily * Bolus insulin * NovoLog per scale ACHS or Q6hrs while NPO * Goal Range: Low 110 mg/dL - High 140 mg/dL * Correction Factor: 20 mg/dL/unit * TIGHTEN: Nutritional / Prandial insulin per carb ratio of 1 unit per 6 grams CHO consumed PLAN FOR DISCHARGE: * 7.4% - goal ~7% / reasonable to continue home oral diabetic agents on discharge as long as no contraindications are present.
[2020-07-01] MEDS: ATORVASTATIN 20 MG TAB PO SCH (20:36)
[2020-07-01] MEDS: DOCUSATE SODIUM/SENNA 50/8.6MG TAB PO SCH (20:37)
[2020-07-02] MEDS: CYCLOBENZAPRINE HCL 10 MG TAB PO SCH ×2 (05:12→13:55)
[2020-07-02] MEDS: POLYETHYLENE (MIRALAX) 17 GM PACK PO SCH ×2 (05:15→12:16)
[2020-07-02] MEDS: INSULIN ASPART 100 UNITS/ML 3 ML PEN SC SCH ×2 (08:41→12:18)
[2020-07-02] MEDS: allopurinoL 100 MG TAB PO SCH (08:43)
[2020-07-02] MEDS: GABAPENTIN 300 MG CAP PO SCH (08:43)
[2020-07-02] MEDS: POTASSIUM CHLORIDE 10 MEQ TABCR PO SCH (08:43)
[2020-07-02] MEDS: lisinopril 20 MG TAB PO SCH (08:43)
[2020-07-02] MEDS: CHLORTHALIDONE 25 MG TAB PO SCH (08:44)
[2020-07-02] MEDS ORDERED: INSULIN GLARGINE SOLOSTAR 100 UNITS/ML 3 ML PEN SC SCH (09:00)
[2020-07-02] MEDS: oxyCODONE/ACETAMINOPHEN 5mg/325mg TAB PO PRN ×2 (09:38→14:32)
--- NOTE | 2020-07-02 09:51 | Orthopedic Progress Note ---
Date of Service July 02, 2020 Assessment & Plan (1) Status post spinal surgery: continue mobilization monitor drain output thoracic/swimmer's view films ordered to better visualize thoracic screws possible d/c tomorrow AM Admission and Anticipated Discharge Date Admission Date: June 30, 2020 Subjective pain well controlled no new numbness/weakness noted improvement of sensation right hand subjectively no radicular symptoms to upper extremity eating/drinking well mobilizing well Review of Systems Review of Systems: All systems reviewed & are unremarkable except as noted in HPI & below Physical Exam Physical Exam: dressing: mild serosang discharge drain: out neuro: grossly intact motor upper and lower extremity right C8 4+/5, right T1 4/5, left C8 4+/5, left T1 4/5 light touch intact upper and lower extremity except b/l C8 1/2 Results & Data ([facility]) Vital Signs (Past 12 Hours) Vital Signs Temp Pulse Resp BP Pulse Ox 07/02/20 08:07 101 H 16 94 07/02/20 07:03 37.2 C 100 H 16 107/70 94 07/02/20 06:22 36.7 C 71 16 131/72 99 07/02/20 03:36 97 H 20 94 07/01/20 23:00 98 H 18 94 07/01/20 22:02 37.5 C 98 H 18 103/67 93 Diagnostic Findings post-op x-rays upright cervical and lumbar spine show appropriate positioning of cervical and thoracic screws PG Care Time/CCT Total # of Minutes Spent Total Time Spent with Patient: Total time spent is greater than 50% in coordination of care (as documented) at patient's floor/unit and/or counseling patient: Coding Level of Care Code None Diagnoses Status post spinal surgery Z98.890 Comment [id number]
--- NOTE | 2020-07-02 09:54 | Discharge Summary ---
Date of Service July 02, 2020 Discharge Data Allergies Allergy/AdvReac Type Severity Reaction Status Date / Time No Known Allergies Allergy Unknown ` Verified 06/30/20 05:48 Consultations 06/30/20 16:27 Consult Hospitalist Routine Procedures Performed Operation Date: 06/30/20 07:00 Actual Procedures p C5-T1 Posterior Cervical Discectomy and Fusion, Allograft, Spinal Cord Monitoring (MEP, SSEP, EMG, Trigger EMG) - Candida Walker MD Hospital Course (1) Status post spinal surgery: Underwent the above mentioned procedure. Patient tolerated procedure well. Sent to telemetry bed (suggested by anesthesia due to length of procedure) then floor post-op. Pain was well controlled. Noted improved subjective sensation and resolved radicular symptoms post-op. Patient able to ambulate, void, and tolerate PO intake. Drain removed before discharge. Verbal discharge and follow- up instructions were given. 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 Activity: Per Instructions section Non-emergency contact: Surgeon Call non-emergency contact if: you have any medication questions, your symptoms worsen, your pain is not controlled, your pain is worsening, your pain is unusual for you, your pain is concerning for you, you have a fever, your rectal temperature is above 100.4, your temperature is above 101, your temperature is above 101.5, your wound has increased redness, your wound has increased drainage and your wound pain has increased Follow-up/Referrals: Jojo Peng MD [Primary Care Provider] - Candida Walker MD [Physician] - (6 weeks) Diet: Regular Addtl Attending Provider Instructions: Posterior Cervical Decompression and Fusion (PCDF) Recovery What to expect You've had surgery, the first step toward the goals of decreasing neck and arm pain, and stopping symptoms of nerve compression or an unstable spine from getting worse. Now it's time to focus on healing. By following these tips, you will set yourself up for a successful outcome after surgery. Top 4 things to know 1. Pain in the back of the neck and between the shoulder blades is common after PCDF surgery. This usually gets better over the next few weeks. If you have trouble breathing after surgery, call 911 or go to an emergency room immediately. 2. Do not use nicotine for at least three months. Nicotine will slow down your healing. 3. Avoid taking anti-inflammatory medications (NSAIDs) for six to 12 weeks or until your surgeon tells you it's safe to use them. NSAIDs include ibuprofen (Motrin, Advil). naproxen (Aleve, Naprosyn), meloxicam (Mobic). Celebrex and diclofenac. 4. In some cases you do not need a collar after surgery. If your surgeon gave you one, you should wear it as directed until your first follow-up appointment. Avoid excessive bending and twisting of your neck after surgery. Your surgeon will decide when your collar can come off. Breathing If you have any trouble breathing or have excessive swelling in your neck, call 911 or go to an emergency room immediately. Pain and weakness A sore throat, neck pain and muscle spasms are normal after PCDF. These should get better over the next few weeks. Numbness, tingling and weakness that you had before surgery may take time to improve. Wearing your collar, if you received one If you were given a collar to wear, the goal of it is to keep your chin up and away from your chest. Your chin needs to be on top of the collar, not down in the collar. Wear your collar until your first follow-up appointment after surgery. You may take the collar off to shower. While the collar is off, keep your head as still as possible and your chin up. Taking care of your incision Your incision may bleed and your dressing may get saturated with blood. This is normal. Change your dressing as often as needed to keep the incision clean and dry If your incision has no drainage, you can take your dressing off three days after surgery, but always keep the incision area clean and dry. If you have skin glue or tape on your incision, try to leave it in place for the first two weeks. Showering You can take a shower three days after surgery. Take your collar off while in the shower Avoid taking tub baths, swimming and going in hot tubs until the incision is completely healed (four to six weeks) Taking medication Do not take anti-inflammatory medications (NSAIDs) for at least three months after surgery. These drugs can interfere with how you heal. NSAIDs include ibuprofen, Advil, Aleve, naproxen, Naprosyn, Mobic, meloxicam, Celebrex, diclofenac. If you need refills on your prescriptions, you may contact our office at least two days before you are out of pills so we have sufficient time to process your request. Refill requests on Friday afternoons and holidays likely will be addressed on the next day. Start weaning yourself from pain medications as soon as you are able. Remember, pain is a natural part of the healing process. The goal is not to eliminate all pain but to keep you comfortable as you heal. Pain medications should be used only for a short period of time. Before taking Tylenol (acetaminophen), be aware that your pain medication probably has acetaminophen in it. Taking additional Tylenol or acetaminophen can put you over the daily recommended 3,000 milligrams, which can harm your liver. If you are taking a muscle relaxer, one of the side effects is drowsiness. If you feel too drowsy to safely get up and move around, take the muscle relaxer less often. Be active, but no lifting We want you to be active as soon as you get home from the hospital. Get up and walk often. If you go up and down stairs, make sure you hold onto the railing and have someone with you. Avoid bending and twisting your neck as much as you can, and do not lift anything over 10 pounds until your surgeon says it's OK. And no driving You cannot drive until you are no longer taking narcotic pain medications or muscle relaxers and you can move well enough to be safe behind the wheel. Most patients can begin driving after the first postoperative appointment. Your surgeon will let you know when you can start driving Eating Ice and Popsicles can help relieve a sore throat. Eat soft foods that are easy to swallow. Take small bites and chew your food well. You can begin eating other foods gradually as you start to feel better. Constipation and bloating Constipation is a common side effect of taking narcotic pain medication and a good reason to begin tapering yourself off of pain medication as soon as you can Drink lots of fluids, be active and eat foods high in fiber to help relieve constipation. If constipation is bothering you, a stool softener or laxative may help. Try one of the following, and always follow the instructions: Milk of Magnesia, MiraLAX, Dulcolax suppository, Fleet enema, magnesium citrate Follow up with your primary care provider If you have any health concerns, see your primary care provider within one week after surgery, especially if you have any of the following Heart disease or have had a stroke Lung disease Diabetes Are over age 65 Take a blood thinner Take more than 10 prescription medications When is it an emergency? If you have any of the following symptoms, call 911 or go to an emergency room right away: Trouble breathing Chest pain Excessive neck swelling Significant new weakness since your surgery If you have any other concern, call our office at [phone] before going to an emergency room. In most cases we can help you or get you an appointment quickly. Pending Studies at Discharge: No Stand-Alone Forms: My [facility], Opioid Pain Management, Smoking Cessation Medications and DC Order Prescriptions: New gabapentin 300 mg Capsule 300 mg PO BID Qty: 28 RF: 0 oxycodone-acetaminophen [Percocet] 5-325 mg tablet 1 - 2 tab PO Q4H Qty: 48 RF: 0 Continued glimepiride 2 mg tablet 2 mg PO QAM Qty: 90 RF: 1 lisinopril 20 mg tablet 20 mg PO QAM Qty: 90 RF: 1 metformin 1,000 mg tablet 1,000 mg PO BID Qty: 180 RF: 1 potassium chloride [Klor-Con 10] 10 mEq tablet extended release 10 meq PO QAM Qty: 90 RF: 1 atorvastatin 20 mg tablet 20 mg PO HS RF: 0 chlorthalidone 25 mg tablet 25 mg PO QAM RF: 0 allopurinol 100 mg tablet 100 mg PO QAM RF: 0 Discontinued acetaminophen 650 mg tablet extended release 650 mg PO QID PRN (Reason: fever or pain) RF: 0 Krames/Other Patient Handouts: Managing Type 2 Diabetes, Managing Diabetes: The A1C Test Admission Data Admit Date/Time: 06/30/20 16:08 Attending Provider: Candida Walker Admit Provider: Candida Walker Primary Care Provider: Jojo Peng Other Providers: Blanco Ramírez ; Conchita Mendez ; Tk Tinoco ; Yan Valdivia ; Janna Maurer ; Ravi Da Silva ; Brendan Patton ; Romel Rodrigues ; Shani Cordero ; Kadie Child ; Shun Cherry ; Radha Saenz ; Ginger Campbell ; Dagoberto Bryan ; Lang Silva ; Janice Fulton ; Bud Hernández ; Bishnu Bello ; Mahsa Salazar ; Valdez Woodard ; Tk Engle ; Erick Penn ; Alannah Hein ; Isidro Bauer ; George Valente Coding Level of Care Code D/C Day Management <30 mins Diagnoses Status post spinal surgery Z98.890 Comment [id number]
--- NOTE | 2020-07-02 09:57 | Discharge Summary ---
Date of Service July 02, 2020 Principal Diagnosis Same as "Discharge Diagnosis" noted below under Discharge Instructions. Discharge Data Consultations 06/30/20 16:27 Consult Hospitalist Routine Procedures Performed Operation Date: 06/30/20 07:00 Actual Procedures p C5-T1 Posterior Cervical Discectomy and Fusion, Allograft, Spinal Cord Monitoring (MEP, SSEP, EMG, Trigger EMG)(Not Applicable) - Candida Walker MD Hospital Course (1) Status post spinal surgery: Underwent the above mentioned procedure. Patient tolerated procedure well. Sent to recovery and then telemetry (anesthesia recommendation based on length of procedure) and then floor post-op. Pain was well controlled. Resolved radicular symptoms and improved subjective sensation of hands. Patient able to ambulate, void, and tolerate PO intake. Drain removed before discharge. Verbal discharge and follow-up instructions were given. PG Care Time/CCT Total # of Minutes Spent Total Time Spent with Patient: Total time spent is greater than 50% in coordination of care (as documented) at patient's floor/unit and/or counseling patient: 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 Activity: Per Instructions section Non-emergency contact: Surgeon Call non-emergency contact if: you have any medication questions, your symptoms worsen, your pain is not controlled, your pain is worsening, your pain is unusual for you, your pain is concerning for you, you have a fever, your rectal temperature is above 100.4, your temperature is above 101, your temperature is above 101.5, your wound has increased redness, your wound has increased drainage and your wound pain has increased Follow-up/Referrals: Jojo Peng MD [Primary Care Provider] - Candida Walker MD [Physician] - (6 weeks) Diet: Regular Addtl Attending Provider Instructions: Posterior Cervical Decompression and Fusion (PCDF) Recovery What to expect You've had surgery, the first step toward the goals of decreasing neck and arm pain, and stopping symptoms of nerve compression or an unstable spine from getting worse. Now it's time to focus on healing. By following these tips, you will set yourself up for a successful outcome after surgery. Top 4 things to know 1. Pain in the back of the neck and between the shoulder blades is common after PCDF surgery. This usually gets better over the next few weeks. If you have trouble breathing after surgery, call 911 or go to an emergency room immediately. 2. Do not use nicotine for at least three months. Nicotine will slow down your healing. 3. Avoid taking anti-inflammatory medications (NSAIDs) for six to 12 weeks or until your surgeon tells you it's safe to use them. NSAIDs include ibuprofen (Motrin, Advil). naproxen (Aleve, Naprosyn), meloxicam (Mobic). Celebrex and diclofenac. 4. In some cases you do not need a collar after surgery. If your surgeon gave you one, you should wear it as directed until your first follow-up appointment. Avoid excessive bending and twisting of your neck after surgery. Your surgeon w ill decide when your collar can come off. Breathing If you have any trouble breathing or have excessive swelling in your neck, call 911 or go to an emergency room immediately. Pain and weakness A sore throat, neck pain and muscle spasms are normal after PCDF. These should get better over the next few weeks. Numbness, tingling and weakness that you had before surgery may take time to improve. Wearing your collar, if you received one If you were given a collar to wear, the goal of it is to keep your chin up and away from your chest. Your chin needs to be on top of the collar, not down in the collar. Wear your collar until your first follow-up appointment after surgery. You may take the collar off to shower. While the collar is off, keep your head as still as possible and your chin up. Taking care of your incision Your incision may bleed and your dressing may get saturated with blood. This is normal. Change your dressing as often as needed to keep the incision clean and dry If your incision has no drainage, you can take your dressing off three days after surgery, but always keep the incision area clean and dry. If you have skin glue or tape on your incision, try to leave it in place for the first two weeks. Showering You can take a shower three days after surgery. Take your collar off while in the shower Avoid taking tub baths, swimming and going in hot tubs until the incision is completely healed (four to six weeks) Taking medication Do not take anti-inflammatory medications (NSAIDs) for at least three months after surgery. These drugs can interfere with how you heal. NSAIDs include ibuprofen, Advil, Aleve, naproxen, Naprosyn, Mobic, meloxicam, Celebrex, diclofenac. If you need refills on your prescriptions, you may contact our office at least two days before you are out of pills so we have sufficient time to process your request. Refill requests on Friday afternoons and holidays likely will be addressed on the next day. Start weaning yourself from pain medications as soon as you are able. Remember, pain is a natural part of the healing process. The goal is not to eliminate all pain but to keep you comfortable as you heal. Pain medications should be used only for a short period of time. Before taking Tylenol (acetaminophen), be aware that your pain medication probably has acetaminophen in it. Taking additional Tylenol or acetaminophen can put you over the daily recommended 3,000 milligrams, which can harm your liver. If you are taking a muscle relaxer, one of the side effects is drowsiness. If you feel too drowsy to safely get up and move around, take the muscle relaxer less often. Be active, but no lifting We want you to be active as soon as you get home from the hospital. Get up and walk often. If you go up and down stairs, make sure you hold onto the railing and have someone with you. Avoid bending and twisting your neck as much as you can, and do not lift anything over 10 pounds until your surgeon says it's OK. And no driving You cannot drive until you are no longer taking narcotic pain medications or muscle relaxers and you can move well enough to be safe behind the wheel. Most patients can begin driving after the first postoperative appointment. Your surgeon will let you know when you can start driving Eating Ice and Popsicles can help relieve a sore throat. Eat soft foods that are easy to swallow. Take small bites and chew your food well. You can begin eating other foods gradually as you start to feel better. Constipation and bloating Constipation is a common side effect of taking narcotic pain medication and a good reason to begin tapering yourself off of pain medication as soon as you can Drink lots of fluids, be active and eat foods high in fiber to help relieve constipation. If constipation is bothering you, a stool softener or laxative may help. Try one of the following, and always follow the instructions: Milk of Magnesia, MiraLAX, Dulcolax suppository, Fleet enema, magnesium citrate Follow up with your primary care provider If you have any health concerns, see your primary care provider within one week after surgery, especially if you have any of the following Heart disease or have had a stroke Lung disease Diabetes Are over age 65 Take a blood thinner Take more than 10 prescription medications When is it an emergency? If you have any of the following symptoms, call 911 or go to an emergency room right away: Trouble breathing Chest pain Excessive neck swelling Significant new weakness since your surgery If you have any other concern, call our office at [phone] before going to an emergency room. In most cases we can help you or get you an appointment quickly. Pending Studies at Discharge: No Stand-Alone Forms: My [facility], Opioid Pain Management, Smoking Cessation Medications and DC Order Prescriptions: New gabapentin 300 mg Capsule 300 mg PO BID Qty: 28 RF: 0 oxycodone-acetaminophen [Percocet] 5-325 mg tablet 1 - 2 tab PO Q4H Qty: 48 RF: 0 Continued glimepiride 2 mg tablet 2 mg PO QAM Qty: 90 RF: 1 lisinopril 20 mg tablet 20 mg PO QAM Qty: 90 RF: 1 metformin 1,000 mg tablet 1,000 mg PO BID Qty: 180 RF: 1 potassium chloride [Klor-Con 10] 10 mEq tablet extended release 10 meq PO QAM Qty: 90 RF: 1 atorvastatin 20 mg tablet 20 mg PO HS RF: 0 chlorthalidone 25 mg tablet 25 mg PO QAM RF: 0 allopurinol 100 mg tablet 100 mg PO QAM RF: 0 Discontinued acetaminophen 650 mg tablet extended release 650 mg PO QID PRN (Reason: fever or pain) RF: 0 Discharge Orders: Discharge Order (Routine); Ordered 07/02/20 Ordered By: Candida Michael/Other Patient Handouts: Managing Type 2 Diabetes, Managing Diabetes: The A1C Test Admission Data Admit Date/Time: 06/30/20 16:08 Attending Provider: Candida Walker Admit Provider: Candida Walker Primary Care Provider: Jojo Peng Other Providers: Blanco Ramírez ; Conchita Mendez ; Tk Tinoco ; Yan Valdivia ; Janna Maurer ; Ravi Da Silva ; Brendan Patton ; Romel Rodrigues ; Shani Cordero ; Kadie Child ; Shun Cherry ; Radha Saenz ; Ginger Campbell ; Dagoberto Bryan ; Lang Silva ; Janice Fulton ; Bud Hernández ; Bishnu Bello ; Mahsa Salazar ; Valdez Woodard ; Tk Engle. ; Erick Penn ; Alannah Hein ; Isidro Bauer ; George Valente.
[2020-07-02] MEDS ORDERED: bisacodyL 10 MG SUPP PR PRN (15:37)
--- NOTE | 2020-07-03 22:14 | Operative Report ---
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 Posterior Cervical Fusion C5-T1 2. Posterior Cervical Instrumentation same levels 3. Bilateral posterior cervical laminectomy entire C7, caudal half of C6 and cranial half of T1, medial facetectomies and foraminotomies 4. Local Autograft for posterior cervical fusion 5. Allograft, morselized (DBM) 6. Application and removal of three-pronged Evans skull clamp Surgeon Candida Walker MD [employer] Donny Blackburn Estimated Blood Loss 250 Findings Consistent with Post-Op Diagnosis Specimens none Description of Procedure Implants: 1. Medtronic Infinity Occipitocervical-Upper Thoracic system C5: 3.5mm x 12mm screws x2 C6: 3.5mm x 12mm screws x2 C7: skipped T1: 4.5mm x 22mm screws x2 3.5mm Precut/Bent rods in Chromaloy plus, 60 mm x 2 2. Medtronic Scammon DBM Drains: 1. Hemovac drain x 2 (10 [place]), one deep and one superficial to fascia Indications: Patient is a 75 year old male who underwent a previous C6 corpectomy in Apr 2018 for myeloradiculopathy. 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 Given progression of motor and sensory symptoms, a discussion was had with the patient with regards to continued non-op vs. operative management of his symptoms. This included risks, benefits and alternatives to surgical management. With regards to surgery, risks discussed include but are not limited to the risk of following complications to anesthesia or surgery, the risk of infection, non union, implant failure, intraoperative or postoperative neurological deficit including paralysis, nerve injury, spinal fluid leak, bleeding, blood borne infections such as HIV or hepatitis, or other complications like myocardial infarction, pneumonia, DVT, pulmonary embolism and stroke, and the remote possibility of post operative blindness. We discussed the use of autograft and allograft bone. The patient expressed an understanding of all the risks, I answered all of the patient's questions and he agreed to proceed with surgery. Informed consent was obtained in clinic. On day of surgery, patient was identified in pre-op holding area. History and Physical was updated, surgical site was marked, and consent was confirmed. Risks, benefits and alternatives were discussed again and I answered all questions from patient and his . Description of procedure: Patient was brought to the operating room and underwent general anesthesia. SCDs were applied to bilateral legs to reduce risk of DVT. A time-out was performed and documented. This included confirmation of administration of prophylactic antibiotics. The scalp was prepped with alcohol and a three-pronged Evans skull clamp was applied. The patient was then flipped prone on a Ayaan table with the Evans attached to bed. The arms were well padded and tucked. The posterior cervical and upper thoracic region was shaved, prepped with alcohol and ChloraPrep, and draped in a standard sterile fashion. Midline longitudinal incision was made and carried through the subcutaneous tissue with cautery. Subperiosteal dissection was brought out over the lamina and lateral mass of the cervical spine and transverse process of the upper thoracic level. A localization xray was taken. I exposed from C4 to T1. Lateral mass screws were then placed bilaterally in C5 and C6. Screw tracts were created with a 2mm bean. Tracts were then palpated, tapped, re-palpated and screws inserted. Bilateral facetectomy was then performed at C7-T1. Thoracic pedicle screws were then placed at T1. Screw starting holes were created with a 2mm bean. A pedicle probe was then used, followed by palpation, tapping, re- palpation and screw insertion. Attention was then placed to the decompression aspect of the procedure while awaiting confirmatory x-rays for screws. I performed a central laminectomy with removal of the entirety of C7, the cranial 50% of T1 and the caudal 50% of C6. I then burred out the medial aspect of the facet joints and removed the thinned bone with 1mm and 2mm Kerrison punches and a 000 upgoing curette. Respective foramens were palpated using a blunt nerve hook and found to be patent after completion of the decompression. Lateral and AP x-rays confirmed satisfactory position of lateral mass screws at C5 and C6, and lateral positioning of the T1 screws bilaterally. Triggered EMG confirmed no activity on all screws up to a threshold of 10mA except left T1 screw with activity at 8.5mA. MEPs remained stable. A decision was made to revise the T1 screws by medializing the start points and medializing the trajectory against resistance from soft tissue to lateralize the screws. Through palpation of medial and superior aspect of the bilateral T1 pedicles through the laminectomy site, position of the T1 pedicles were further confirmed. Screw starting holes were created with a 2mm bean. A pedicle probe was then used, followed by palpation, tapping, re-palpation and screw insertion. Repeat lateral and AP x-rays confirmed satisfactory position of all screws. Triggered EMG confirmed no activity on all screws up to a threshold of 10mA. MEPs remained unchanged and intact. The wound was then irrigated. The lateral masses and facet joints were thoroughly decorticated with a high-speed bean. Pre-cut bent rods were selected, adjusted with a bam leahy as needed, and placed within the screws. Set plugs were torque tightened. Autograft obtained from the decompression aspect of procedure was combined with allograft and applied to the facet and lateral mass of the levels being fused. Deep and superficial drains were placed. The wound was closed in layers with #1 Vicryl, 0 Ethibond, 2-0 Vicryl and 3-0 Stratafix sutures. Steri-strips and steri le dressings were applied. The patient was then flipped supine and the Evans clamp was removed without complication. The patient was awakened and taken to the recovery room in stable condition. Neuromonitoring was performed throughout the case using SSEP, MEP, EMG and triggered EMG. There were no intra-operative complications noted. Sponge and needle counts were correct x2 at the conclusion of the case. Patient was taken to the recovery area in stable condition and a repeat neurological exam, once awake and alert, confirmed no new neurological deficits. I attest to the content of the Intraoperative Record and any orders documented therein. Any exceptions are noted below.
== END 2020-07-02 14:40 | disposition home or self-care (01) | DRG 29 ==
LOC: ASU 05:23 → 2S 16:08 → SUATTDRO 16:08 → 2S 17:25 → 3E 07-01 12:40